=== PATIENT | male | born 1980 | race Caucasian/White ===

== ENCOUNTER 2024-12-28 16:46 | Inpatient (IN) | payer OTHER, SELFPAY ==
--- OUTSIDE RECORDS SUMMARY | 2024-12-28 16:50 | XMS_ITS | Encounter Summary ---
Author Organization [facility] Address [address] [place] [address] Care Team Providers Care Early Childhood Education Worker Name Role Phone Pcp, No Primary Care Provider Unavailabl e Encounter Details Date Type Department Care Team (Late st Contact Info) Description 12/26/2024 Procedure Pass [facility] [address] [place] [address] Social History Tobacco Use Types Packs/Day Years Used Date Smoking Tobacco: Every Day Cigarettes 1 20 Smokeless Tobacco: Never Comments:No interest in quit ting. Alcohol Use Standard Drinks/Week Comments No 0 (1 standard drink = 0.6 oz pur e alcohol) social Sex and Gender Information Value Date Recorded Sex Assigned at Male 07/03/2024 3:38 AM EDT Legal Sex Male 6:54 PM EDT Gender Identity Male 07/03/2024 3:38 AM EDT Sexual Orientation Queer, pansexual, an d/or questioning 07/03/2024 3:40 AM EDT Occupation Industry Job Start Date Job End Date Not on file Not on file Not on file Not on file documented as of this encounter Plan of Treatment Not on file documented as of this encounter Visit Diagnoses Not on filedocumented in this encounter Care Teams Early Childhood Education Worker Relationship Specialty [place] [id number] PCP - General 12/25/24 documented as of this encounter
--- OUTSIDE RECORDS SUMMARY | 2024-12-28 16:50 | XMS_ITS | Encounter Summary ---
Author Organization [facility] Address [address] [place] [address] Care Team Providers Care Shower Doors And Panels Fabricator Name Role Phone Kye Tobias MD Unavailable [phone] Brayden Flanagan MD Primary Care Provider [phone] Pcp, No Primary Care Provider Unavailabl e Pcp, No Primary Care Provider Unavailabl e Reason for Referral * Diagnostic (Routine) - Closed Specialty Diagnoses / Procedures Referred By Contac t Referred To Contact Radiology Diagnoses Constipation Procedures X-ray abdomen AP Brayden Flanagan MD [address] [place] [phone] Phone: tel: fax: Referral ID Status Reason Start Date Expiration Date Visits Re quested Visits Authorized [id number] Closed 03/08/2018 03/08/2019 1 1 Encounter Details Date Type Department Care Team (Late st Contact Info) Description 03/08/2018 Ancillary Orders [facility] [address] [place] [address] Brayden Flanagan MD [address] [place] [address] Constipation Social History Tobacco Use Types Packs/Day Years [...] on file documented as of this encounter Results * X-ray abdomen AP (03/08/2018 12:35 PM EDT) Anatomical Region Laterality Modality Abdomen, Ortho Abdomen Digital R adiography 03/08/2018 3:39 PM EDT Impressions 03/08/2018 3:40 PM EDT FINDINGS/IMPRESSION: Moderate amount of stool throughout the colon. Nonobstructive, nonspecific bowel gas pattern. No evidence of free air or radiopaque foreign body. Narrative 03/08/2018 3:40 PM EDT HISTORY: /Constipation Procedure Note Leonard Sullivan MD - 03/08/2018 HISTORY: /Constipation FINDINGS/IMPRESSION: Moderate amount of stool throughout the colon. Nonobstructive, nonspecificbowel gas pattern. No evidence of free air or radiopaque foreign body. Brayden Flanagan MD IMG DIAGNOSTIC IMAGING ORDERABL ES Final Result documented in this encounter Visit Diagnoses Diagnosis Constipation Unspecified constipation Constipation Unspecified constipation documented in this encounter Care Teams Shower Doors And Panels Fabricator Relationship Specialty Start Date End Date Kye Tobias MD PCP - Family Medicine 06/26/15 12/24/24 Brayden Flanagan MD [address] [place] [phone] PCP - General Family Medicine 03/07/18 07/02/24 [place] [id number] PCP - General 07/03/24 11/26/24 [place] [id number] PCP - General 12/25/24 documented as of this encounter
--- OUTSIDE RECORDS SUMMARY | 2024-12-28 16:50 | XMS_ITS | Encounter Summary ---
Author Organization [facility] Address [address] [place] [address] Care Team Providers Care Key Carrier Name Role Phone Pcp, No Primary Care Provider Unavailabl e Encounter Details Date Type Department Care Team (Latest Contact Info) Description 12/26/2024 Travel Social History Tobacco Use Types Packs/Day Years [...] on filedocumented in this encounter Care Teams Key Carrier Relationship Specialty [place] [id number] PCP - General 12/25/24 documented as of this encounter
--- OUTSIDE RECORDS SUMMARY | 2024-12-28 16:50 | XMS_ITS | Encounter Summary ---
Author Organization [facility] Address [address] [place] [address] Care Team Providers Care Fund Manager Name Role Phone Kye Tobias MD Unavailable [phone] Nellie Nava MD Primary Care Provider Brayden Flanagan MD Primary Care Provider [phone] Pcp, No Primary Care Provider Unavailabl e Pcp, No Primary Care Provider Unavailabl e Reason for Visit * Reason Onset Date Comments Results 01/16/2018 Encounter Details Date Type Department Care Team (Late st Contact Info) Description 01/16/2018 Telephone [facility] [address] [place] [phone] Anali Aguilar NP [address] [place], [place] [phone] Results Social History Tobacco Use Types Packs/Day Years Used Date Smoking Tobacco: Every Day Cigarettes 1 20 Smokeless Tobacco: Never Alcohol Use Standard Drinks/Week Comments No 0 (1 standard drink = 0.6 oz pur e alcohol) social Sex and Gender Information Value Date Recorded Sex Assigned at Male 07/03/2024 3:38 AM EDT Legal Sex Male 6:54 PM EDT Gender Identity Male 07/03/2024 3:38 AM EDT Sexual Orientation Queer, pansexual, an d/or questioning 07/03/2024 3:40 AM EDT documented as of this encounter Miscellaneous Notes * Telephone Encounter - Anali Aguilar NP - 01/16/2018 12:05 PM EST Left message on machine. Labs are still pending and I will call patient back when I have the results. * Telephone Encounter - Nita Bazan - 01/16/2018 9:55 AM EST Patient is calling today requesting results for his lab work and also would like a call to discuss his medications lamoTRIgine (LaMICtal) 150 MG tablet gabapentin (NEURONTIN) 400 MG capsule Patient can be reached at [phone] documented in this encounter Plan of Treatment Not on file documented as of this encounter Visit Diagnoses Not on filedocumented in this encounter Care Teams Fund Manager Relationship Specialty Start Date End Date Kye Tobias MD PCP - Family Medicine 06/26/15 12/24/24 Nellie Nava MD [address] [place] [address] PCP - General Internal Medicine 01/16/18 03/06/18 Brayden Flanagan MD [address] [place] [phone] PCP - General Family Medicine 03/07/18 07/02/24 [place] [id number] PCP - General 07/03/24 11/26/24 [place] [id number] PCP - General 12/25/24 documented as of this encounter
--- OUTSIDE RECORDS SUMMARY | 2024-12-28 16:50 | XMS_ITS | Encounter Summary ---
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 1006, For 1 dose, Look-alike / Sound-alike Medication Given 12/26/2024 10:23 AM EST 75 mg documented in this encounter Active and Recently Administered Medications Times are shown in EST. Scheduled Medication Order 12/24/2024 12/25/2024 12/26/2024 haloperidol (HALDOL) tablet 5 mg 5 mg, Oral, Once, On Tue12/26/24 at 1006, For 1 dose 1023 (Not Given - Pr ovider: Zulay Gore RN - Reason: Patient/family refused) lamoTRIgine (LaMICtal) tablet 75 mg (COMPLETED) 75 mg, Oral, Once, On Tue12/26/24 at 1006, For 1 dose, Look-alike / Sound-alike Medication 1023 (Given - Provid er: Zulay Gore RN) documented in this encounter Care Teams Collision Worker Relationship Specialty Start [place] [id number] PCP - General 12/25/24 documented as of this encounter
--- OUTSIDE RECORDS SUMMARY | 2024-12-28 16:50 | XMS_ITS | Clinical Summary ---
Author Organization [facility] Address [address] Main Number: [phone] (13/06) [place] [address] Care Team Providers Care Veterinary X Ray Operator Name Role Phone Unavailable Primary Care Provider Unavailabl e Allergies No known active allergies Social History Tobacco Use Types Packs/Day Years Used Date Smoking Tobacco: Some Days Smokeless Tobacco: Never Housing Answer Date Recorded What is your living situatio n today? I do not have a steady place to live (I am temporarily staying with others, in a hotel, in a group home, living outside on the street, on a bench, in a car, abandoned building, bus or train station, or in a park) 12/19/2018 Sex and Gender Information Value Date Recorded Sex Assigned at Not on file Gender Identity Not on file Sexual Orientation Not on file Last Filed Vital Signs Vital Sign Reading Time Taken Comments Blood Pressure 124/84 12/19/2018 11:19 AM EST Pulse 92 12/19/2018 11:19 AM EST Temperature 37.1 ??C (98.8 ??F) 12/19/2018 11:[address] Respiratory Rate 18 12/19/2018 11:19 AM EST Oxygen Saturation 94% 12/19/2018 11:19 AM EST Inhaled Oxygen Concentration - - Weight 108.9 kg (240 lb) 12/19/2018 7:42 AM EST Height 188 cm (6' 2 ) 12/19/2018 7:42 AM EST Body Mass Index 30.81 12/19/2018 7:42 AM EST Plan of Treatment Not on file
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
--- OUTSIDE RECORDS SUMMARY | 2024-12-28 16:50 | XMS_ITS | Encounter Summary ---
Author Organization [facility] Address [address] [place] [address] Care Team Providers Care Jet Pilot Name Role Phone Kye Tobias MD Unavailable [phone] Reason for Referral * Diagnostic (Routine) - Authorized Specialty Diagnoses / Procedures Referred By Kristy garnett Referred To Contact Radiology Diagnoses Closed displaced fracture of acromial end of right clavicle, initial encounter Procedures X-ray clavicle right Flor Kang MD [address] [place] [address], [place] [address] Phone: tel: fax: Referral ID Status Reason Start Date Expiration Date V isits Requested Visits Authorized [id number] Authorized 11/27/2024 11/27/2026 1 1 Reason for Visit * Diagnostic (Routine) - Authorized Specialty Diagnoses / Procedures Referred By Kristy garnett Referred To Contact Radiology Diagnoses Closed displaced fracture of acromial end of right clavicle, initial encounter Procedures X-ray clavicle right Flor Kang MD [address] [place] [address], [address] [address] Phone: tel: fax: Referral ID Status Reason Start Date Expiration Date V isits Requested Visits Authorized [id number] Authorized 11/27/2024 11/27/2026 1 1 Encounter Details Date Type Department Care Team (Latest Contact Info) Description 11/27/2024 1:00 PM EST - 11/27/2024 8:04 PM EST Hospital Encounter [facility] [address] [place] [address] Closed displaced fracture of acromial end of right clavicle, initial encounter Discharge Disposition: Home or Self Care Social [...] on file documented as of this encounter Medications at Time of Discharge OLANZapine (ZyPREXA) 20 MG tablet Take 1 tablet (20 mg total) by mouth at bedtime buPROPion (WELLBUTRIN SR) 100 MG extended release 12 hr tablet (SR) Take 1 tablet (100 mg total) by mouth 2 (two) times a day 5 ondansetron (ZOFRAN-ODT) 4 MG disintegrating tablet Dissolve 1 tablet (4 mg total) in mouth every 8 (eight) hours as needed for nausea for up to 15 days 15 tablet 11/27/2024 5 documented as of this encounter Plan of Treatment Not on file documented as of this encounter Procedures Procedure Name Priority Date/Time Associated Diagnosis Comments XR CLAVICLE RIGHT Routine 11/27/2024 1:1 4 PM EST Closed displaced fracture of acromial end of right clavicle, initial encounter documented in this encounter Results * X-ray clavicle right (11/27/2024 1:14 PM EST) Anatomical Region Laterality Modality Shoulder, Ortho Shoulder Digital Radiography 12/03/2024 12:3 6 PM EST Impressions 12/03/2024 12:37 PM EST FINDINGS/IMPRESSION: There is normal mineralization. No interval change in alignment of a comminuted displaced distal right clavicular fracture with approximately 2.0 cm distraction of the fracture fragment. Postsurgical changes of the left clavicle are again noted. No additional fracture or osseous lesion is identified. There is mild widening of the acromioclavicular joint which measures 7 mm. The soft tissues are normal. RS: [id number] Narrative 12/03/2024 12:37 PM EST HISTORY: Fracture, clavicle/Closed displaced fracture of acromial end of right clavicle, initial encounter TECHNIQUE: XR CLAVICLE RIGHT COMPARISON: Radiographs 11/27/2024 Procedure Note Shamika Smith MD - 12/03/2024 HISTORY: Fracture, clavicle/Closed displaced fracture of acromial end ofright clavicle, initial encounter TECHNIQUE: XR CLAVICLE RIGHT COMPARISON: Radiographs 11/27/2024 FINDINGS/IMPRESSION: There is normal mineralization. No interval change in alignment of acomminuted displaced distal right clavicular fracture with approximately2.0 cm distraction of the fracture fragment. Postsurgical changes of theleft clavicle are again noted. No additional fracture or osseous lesion is identified. There is mildwidening of the acromioclavicular joint which measures 7 mm. The softtissues are normal. RS: [id number] Flor Kang MD IMG DIAGNOSTIC IMAGING ORDER JACOBO Final Result documented in this encounter Visit Diagnoses Diagnosis Closed displaced fracture of acromial end of right clavicle, initial encounter documented in this encounter Care Teams Jet Pilot Relationship Specialty Start Date End Date Kye Tobias MD PCP - Family Medicine 06/26/15 12/24/24 documented as of this encounter
--- OUTSIDE RECORDS SUMMARY | 2024-12-28 16:50 | XMS_ITS | Clinical Summary ---
Author Organization [facility] Address [address] [place] [address] Care Team Providers Care Drop Board Worker Name Role Phone Unavailable Primary Care Provider Unavailabl e Social History Tobacco Use Types Packs/Day Years Used Date Smoking Tobacco: Never Assessed Sex and Gender Information Value Date Recorded Sex Assigned at Not on file Legal Sex Male 6:42 PM EST Gender Identity Not on file Sexual Orientation Not on file Plan of Treatment Not on file
--- OUTSIDE RECORDS SUMMARY | 2024-12-28 16:50 | XMS_ITS | Encounter Summary ---
Author Organization [facility] Address [address] [place] [address] Care Team Providers Care Can Pusher Name Role Phone Kye Tobias MD Unavailable [phone] Kye Tobias MD Primary Care Provider [phone] Nellie Nava MD Primary Care Provider [phone] Brayden Flanagan MD Primary Care Provider [phone] Pcp, No Primary Care Provider Unavailabl e Pcp, No Primary Care Provider Unavailabl e Reason for Visit * Reason Onset Date Comments sick call 09/27/2017 patient states h e has been having seizures yesterday he had a bad one now he feels dizzy he cannot come in today wants to see NA pablo 145pm appt asked patient if he was sure he could not come today and could wait till tomorrow Encounter Details Date Type Department Care Team (Late st Contact Info) Description 09/27/2017 Telephone [facility] [address] [place] [address] Kye Tobias MD [address] [place], [place] [phone] sick call (patient states he has been having seizures yesterday he had a bad one now he feels dizzy he cannot come in today wants to see NA pablo 145pm appt asked patient if he was sure he could not come today and could wait till tomorrow ) Social History Tobacco Use Types Packs/Day Years Used Date Smoking Tobacco: Every Day Cigarettes 1 20 Smokeless Tobacco: Never Alcohol Use Standard Drinks/Week Comments Yes 0 (1 standard drink = 0.6 oz pur e alcohol) social Sex and Gender Information Value Date Recorded Sex Assigned at Male 07/03/2024 3:38 AM EDT Legal Sex Male 6:54 PM EDT Gender Identity Male 07/03/2024 3:38 AM EDT Sexual Orientation Queer, pansexual, an d/or questioning 07/03/2024 3:40 AM EDT documented as of this encounter Miscellaneous Notes * Telephone Encounter - Naty Manzano RN - 09/27/2017 11:36 AM EST Spoke w/ pt - he had another seizure yesterday, he started to twitch , then fell and seized , felt shaky, salight urinary dribbling, no bowel incont, + headache, sleepy. Will keep OV in am w/ Dr Tobias. Saw neuro 09/05- has not had head MRI, has not been scheduled yet, pt will call Neuro for this 48 hr eeg due 10/18/17 documented in this encounter Plan of Treatment Not on file documented as of this encounter Visit Diagnoses Not on filedocumented in this encounter Care Teams Can Pusher Relationship Specialty Start Date End Date Kye Tobias MD PCP - Family Medicine 06/26/15 12/24/24 Kye Tobias MD PCP - General Internal Medicine 08/24/16 01/15/18 Nellie Nava MD [address] [place] [address] PCP - General Internal Medicine 01/16/18 03/06/18 Brayden Flanagan MD [address] [place] [phone] PCP - General Family Medicine 03/07/18 07/02/24 [place] [id number] PCP - General 07/03/24 11/26/24 [place] [id number] PCP - General 12/25/24 documented as of this encounter
--- OUTSIDE RECORDS SUMMARY | 2024-12-28 16:50 | XMS_ITS | Encounter Summary ---
Author Organization [facility] Address [address] [place] [address] Care Team Providers Care Transit Manager Name Role Phone Kye Tobias MD Unavailable [phone] Kye Tobias MD Primary Care Provider Nellie Nava MD Primary Care Provider [phone] Brayden Flanagan MD Primary Care Provider [phone] Pcp, No Primary Care Provider Unavailabl e Pcp, No Primary Care Provider Unavailabl e Reason for Visit * Reason Comments Medication Refill Encounter Details Date Type Department Care Team (Late st Contact Info) Description 03/05/2017 Refill [facility] [address] [place] [address] Kye Tobias MD [address] [place], [place] [phone] Social History Tobacco Use Types Packs/Day Years [...] AM EDT documented as of this encounter Plan of Treatment Not on file documented as of this encounter Visit Diagnoses Not on filedocumented in this encounter Care Teams Transit Manager Relationship Specialty Start Date End Date Kye Tobias MD PCP - Family Medicine 06/26/15 12/24/24 Kye Tobias MD PCP - General Internal Medicine 08/24/16 01/15/18 Nellie Nava MD [address] [place] [address] PCP - General Internal Medicine 01/16/18 03/06/18 Brayden Flanagan MD [address] [place] [phone] PCP - General Family Medicine 03/07/18 07/02/24 [place] [id number] PCP - General 07/03/24 11/26/24 [place] [id number] PCP - General 12/25/24 documented as of this encounter
--- OUTSIDE RECORDS SUMMARY | 2024-12-28 16:50 | XMS_ITS | Encounter Summary ---
Author Organization [facility] Address [address] [place] [address] Care Team Providers Care Roustabout Pusher Name Role Phone Kye Tobias MD Unavailable [phone] Kye Tobias MD Primary Care Provider Nellie Nava MD Primary Care Provider [phone] Brayden Flanagan MD Primary Care Provider [phone] Pcp, No Primary Care Provider Unavailabl e Pcp, No Primary Care Provider Unavailabl e Reason for Visit * Reason Onset Date Comments Sick Call 07/12/2017 Pt thinks he's b een having seizures on & off since he was a teenager. Girlfriend has witnessed a chronic jerk or drops something then falls to the floor, has happened about 10 times in past 6 months. Also has difficulty urinating, difficulty starting to urinate then feels pressure when he does urinate for about [address] apt w/ MICHELLE Montejo today @ 4:15pm Encounter Details Date Type Department Care Team (Late st Contact Info) Description 07/12/2017 Telephone [facility] [address] [place] [address] Kye Tobias MD [address] [place] [address] Sick Call (Pt thinks he's been having seizures on & off since he was a teenager. Girlfriend has witnessed a chronic jerk or drops something then falls to the floor, has happened about 10 times in past 6 months. Also has difficulty urinating, difficulty starting to urinate then feels pressure when he does urinate for about 2 weeks[address] apt w/ MICHELLE Montejo today @ 4:15pm) Social History Tobacco Use Types Packs/Day Years [...] encounter Miscellaneous Notes * Telephone Encounter - Awilda Montes NP - 07/12/2017 4:30 PM EDT Okay documented in this encounter Plan of Treatment Not on file documented as of this encounter Visit Diagnoses Not on filedocumented in this encounter Care Teams Roustabout Pusher Relationship Specialty Start Date End Date Kye Tobias MD PCP - Family Medicine 06/26/15 12/24/24 Kye Tobias MD PCP - General Internal Medicine 08/24/16 01/15/18 Nellie Nava MD [address] [place] [address] PCP - General Internal Medicine 01/16/18 03/06/18 Brayden Flanagan MD [address] [place] [id number] PCP - General Family Medicine 03/07/18 07/02/24 [place] [id number] PCP - General 07/03/24 11/26/24 [place] [id number] PCP - General 12/25/24 documented as of this encounter
--- OUTSIDE RECORDS SUMMARY | 2024-12-28 16:50 | XMS_ITS | Encounter Summary ---
Author Organization [facility] Address [address] [place] [address] Care Team Providers Care Hand Singer Name Role Phone Kye Tobias MD Unavailable [phone] Kye Tobias MD Primary Care Provider Nellie Nava MD Primary Care Provider [phone] Brayden Flanagan MD Primary Care Provider [phone] Pcp, No Primary Care Provider Unavailabl e Pcp, No Primary Care Provider Unavailabl e Reason for Visit * Reason Onset Date Comments TCM 09/16/2016 Patient being D/ C tomorrow 09/17/16. Hosp h/u appt booked for 09/24/16 Encounter Details Date Type Department Care Team (Late st Contact Info) Description 09/16/2016 Telephone [facility] [address] [place] [address] Kye Tobias MD [address] [place], [place] [id number] TCM (Patient being D/C tomorrow 09/17/16. Hosp h/u appt booked for 09/24/16) Social History Tobacco Use Types Packs/Day Years [...] encounter Miscellaneous Notes * Telephone Encounter - Rimma Pina RN - 09/17/2016 10:48 AM EDT Tel with pt, home and doing well, no refills needed, pt needs PT-1 form done for ov here 09/24 and for Physical therapy visits, new encounter created for same documented in this encounter Plan of Treatment Not on file documented as of this encounter Visit Diagnoses Not on filedocumented in this encounter Care Teams Hand Singer Relationship Specialty Start Date End Date Kye Tobias MD PCP - Family Medicine 06/26/15 12/24/24 Kye Tobias MD PCP - General Internal Medicine 08/24/16 01/15/18 Nellie Nava MD [address] [place] [id number] PCP - General Internal Medicine 01/16/18 03/06/18 Brayden Flanagan MD [address] [place] [phone] PCP - General Family Medicine 03/07/18 07/02/24 [place] [id number] PCP - General 07/03/24 11/26/24 [place] [id number] PCP - General 12/25/24 documented as of this encounter
--- OUTSIDE RECORDS SUMMARY | 2024-12-28 16:50 | XMS_ITS | Encounter Summary ---
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 Barone contacted with report of (+) SI VSS, resp and cardiac assessment WNL (+) Tremors, (+) Restlessness, (+) responding to internal stimuli, (+) Agitation Previous notes report, Ortho has been trying to reach Pt for H&P and to schedule surgery, unable to reach Pt Stretcher in hallway, monitored, bed at lowest level * Brigitte Hogan RN - 11/28/2024 4:52 AM EST PT ARRIVES TO ED REPORTING PAIN TO SOLES OF FEET. PT ALSO REPORTING PAIN/REDNESS/SWELLING TO BILAT GREAT TOES +CSM. PT REPORTS WALKING A LOT . documented in this encounter Plan of Treatment Not on file documented as of this encounter Procedures Procedure Name Priority Date/Time Associated Diagnosis Comments TOXICOLOGY SCREEN, URINE (NON FCU) STAT 11/28/2024 3:42 PM EST TOXICOLOGY SCREEN, URINE STAT 11/28/2024 3:42 PM EST CBC AND AUTO DIFFERENTIAL STAT 11/28/2024 8:36 AM EST LIPASE STAT 11/28/2024 8:36 AM EST ETHANOL STAT 11/28/2024 8:36 AM EST ACETAMINOPHEN LEVEL STAT 11/28/2024 8 :36 AM EST SALICYLATE LEVEL STAT 11/28/2024 8:36 AM EST COMPREHENSIVE METABOLIC PANEL STAT 11/28/2024 8:36 AM EST documented in this encounter Results * (ABNORMAL) Toxicology screen, urine (11/28/2024 3:42 PM EST) Amphetamine Qualitative, Ur Detected(A) None Detected 11/28/2024 4:37 PM EST [facility] Barbiturates Qualitative, Ur None Detected None Detected 11/28/2024 4:37 PM [facility] Benzodiazepines Qualitative, Ur Detected(A) None Detected 11/28/2024 4:37 PM EST [facility] Methadone Qualitative, Ur None Detected None Detected 11/28/2024 4:37 PM [facility] Opiates Qualitative, Ur None Detected None Detected 11/28/2024 4:37 PM [facility] Cannabinoids Qualitative, Ur Detected(A) None Detected 11/28/2024 4:37 PM [facility] Cocaine Qualitative, Ur Detected(A) None Detected 11/28/2024 4:37 PM [facility] Oxycodone Qualitative Urine None Detected None Detected 11/28/2024 4:37 PM [facility] Buprenorphine Qualitative Urine Detected(A) None Detected 11/28/2024 4:37 PM [facility] Fentanyl Qualitative, Ur Detected(A) None Detected 11/28/2024 4:37 PM [facility] Creatinine, Urine 220.0 20.0 - 400.0 mg/dL 11/28/2024 4:37 PM [facility] Urine Collection / Unknown 11/28/2024 3:42 PM EST 11/28/2024 4:01 PM EST [facility] - 11/28/2024 4:37 PM EST This urine immunoassay drug method is for medical ??SCREENING only and should not be used for non-medical ??(employment,legal) purposes. ??The test result(s) may be ??affected by dietary and over the counter medications. ??Negative cut-offs for these tests are set to detect DRUG ??ABUSE. ??Therapeutic levels of these drugs may not be ??detected. ?(The negative cut-offs for the drug classes are: ??Cocaine, Methadone, Opiates 300 ng/ml; ??Barbituates, Benzodiazepines 200 ng/ml; Amphetamines 1000 ng/ml; ??Cannabinoids 50 ng/ml; Buprenorphine 5 ng/ml; Oxycodone 100 ng/ml; ??Fentanyl 1 ng/ml). ??As this is a screening methodology, any positive results are ??UNCONFIRMED. ??Confirmation of positive results may be ??requested from the laboratory within 5 days. ??All test ??results should be interpreted in context of the patient's ??clinical condition. us Kenya Barone MD URINE ORDERABLES Final Res ult Performing Organization Address [facility] de Phone Number [facility] [address] [place] [phone] * Ethanol (11/28/2024 8:36 AM EST) Ethanol Lvl <3 <10 mg/dL 11/28/2024 9:39 AM EST [facility] Blood Structure of part of left upper limb / Unknown Venipuncture / Unknown 11/28/2024 8:36 AM EST 11/28/2024 8:41 AM EST us Kenya Barone MD LAB BLOOD ORDERABLES Final Result Performing Organization Address [facility] Phone Number [facility] [address] [place] [phone] * Salicylate level (11/28/2024 8:36 AM EST) Salicylate <3.0 <30.0 mg/dL 11/28/2024 9:39 AM EST [facility] Blood Structure of part of left upper limb / Unknown Venipuncture / Unknown 11/28/2024 8:36 AM EST 11/28/2024 8:41 AM EST us Kenya Barnoe MD LAB BLOOD ORDERABLES Final Result Performing Organization Address [facility] de Phone Number [facility] [address] [place] [phone] * (ABNORMAL) Acetaminophen level (11/28/2024 8:36 AM EST) Acetaminophen Level <2(L) 10 - 20 ug/mL 11/28/2024 9:39 AM EST [facility] Blood Structure of part of left upper limb / Unknown Venipuncture / Unknown 11/28/2024 8:36 AM EST 11/28/2024 8:41 AM EST us Kenya Barone MD LAB BLOOD ORDERABLES Final Result Performing Organization Address City/[facility]/ZIP Co de Phone Number [facility] [address] [place] [address] * Lipase (11/28/2024 8:36 AM EST) Lipase 43 12 - 53 U/L 11/28/2024 9:38 AM EST [facility] Blood Structure of part of left upper limb / Unknown Venipuncture / Unknown 11/28/2024 8:36 AM EST 11/28/2024 8:41 AM EST us Kenya Barone MD LAB BLOOD ORDERABLES Final Result Performing Organization Address [facility] Co de Phone Number [facility] [address] [place] [phone] * (ABNORMAL) Comprehensive metabolic panel (11/28/2024 8:36 AM EST) Sodium 140 136 - 145 mEq/L 11/28/2024 9:38 AM EST [facility] Potassium 4.0 3.5 - 5.1 mEq/L 11/28/2024 9:38 AM EST [facility] Chloride 104 98 - 109 mEq/L 11/28/2024 9:38 AM EST [facility] CO2 28 20 - 31 mEq/L 11/28/2024 9:38 AM EST [facility] Anion Gap 8 4 - 15 mEq/L 11/28/2024 9:38 AM EST [facility] Glucose 101(H) 70 - 100 mg/dL 11/28/2024 9:38 AM EST [facility] Creatinine 0.92 0.60 - 1.10 mg/dL 11/28/2024 9:38 AM EST [facility] eGFR (Male) >60 60 - 115 mL/min 11/28/2024 9:38 AM EST [facility] BUN 17 9 - 23 mg/dL 11/28/2024 9:38 AM EST [facility] Calcium 9.0 8.3 - 10.6 mg/dL 11/28/2024 9:38 AM EST [facility] Total Protein 6.2 5.7 - 8.2 g/dL 11/28/2024 9:38 AM EST [facility] Albumin 4.0 3.2 - 4.8 g/dL 11/28/2024 9:38 AM EST [facility] A/G Ratio 1.8 1.0 - 2.3 11/28/2024 9:38 AM EST [facility] Total Bilirubin 0.3 0.2 - 1.0 mg/dL 11/28/2024 9:38 AM EST [facility] AST 32 13 - 40 U/L 11/28/2024 9:38 AM [facility] Alkaline Phosphatase 58 46 - 116 IU/L 11/28/2024 9:38 AM [facility] ALT 22 7 - 40 U/L 11/28/2024 9:38 AM [facility] Blood Structure of part of left upper limb / Unknown Venipuncture / Unknown 11/28/2024 8:36 AM EST 11/28/2024 8:41 AM EST [facility] - 11/28/2024 9:38 AM EST The calcium reference range has been changed as of 10/16/2024. us Kenya Barone MD LAB BLOOD ORDERABLES Final Result Performing Organization Address City/State/[facility] Co de Phone Number [facility] [address] [place] [phone] * (ABNORMAL) CBC and Auto Differential (11/28/2024 8:36 AM EST) WBC 8.5 4.8 - 11.2 10*3/??L 11/28/2024 8:51 AM EST [facility] RBC 3.62(L) 4.00 - 5.90 10*6/??L 11/28/2024 8:51 AM EST [facility] HGB 11.4(L) 14.0 - 17.2 g/dL 11/28/2024 8:51 AM [facility] HCT 33.3(L) 40.0 - 52.0 % 11/28/2024 8:51 AM [facility] MCV 92.1 82.0 - 98.0 fL 11/28/2024 8:51 AM [facility] MCH 31.4 27.0 - 35.0 pg 11/28/2024 8:51 AM [facility] MCHC 34.1 32.0 - 37.0 g/dL 11/28/2024 8:51 AM [facility] RDW 13.3 12.0 - 15.0 % 11/28/2024 8:51 AM [facility] PLT 287 150 - 400 10*3/??L 11/28/2024 8:51 AM [facility] MPV 7.7 7.0 - 14.0 fL 11/28/2024 8:51 AM [facility] Neut % 71.3 45.0 - 85.0 % 11/28/2024 8:51 AM [facility] Lymph % 14.4(L) 15.0 - 45.0 % 11/28/2024 8:51 AM [facility] [place] % 10.8 0.0 - 12.0 % 11/28/2024 8:51 AM [facility] Eos % 3.0 0.0 - 7.0 % 11/28/2024 8:51 AM [facility] Baso % 0.5 0.0 - 3.0 % 11/28/2024 8:51 AM [facility] NRBC% 0 0 /100 WBC /100 WBC 11/28/2024 8:51 AM [facility] Neut # 6.1 2.2 - 9.5 10*3/??L 11/28/2024 8:51 AM [facility] Lym # 1.2 0.7 - 5.0 10*3/??L 11/28/2024 8:51 AM [facility] [place] # 0.9 0.0 - 1.3 10*3/??L 11/28/2024 8:51 AM EST [facility] Eos # 0.3 0.0 - 0.4 10*3/??L 11/28/2024 8:51 AM EST [facility] Baso # 0.0 0.0 - 0.3 10*3/??L 11/28/2024 8:51 AM EST [facility] Blood Structure of part of left upper limb / Unknown Venipuncture / Unknown 11/28/2024 8:36 AM EST 11/28/2024 8:41 AM EST us Kenya Barone MD LAB BLOOD ORDERABLES Final Result [facility] [address] [place] [address] documented in this encounter Visit Diagnoses Diagnosis Mona (HCC)- Primary Bipolar I disorder, single manic episode, unspecified Mona (HCC) Bipolar I disorder, single manic episode, unspecified Polysubstance abuse (HCC) Other, mixed, or unspecified nondependent drug abuse, unspecified Clavicle fracture Unspecified part of closed fracture of clavicle documented in this encounter Admitting Diagnoses Diagnosis Mona (HCC) Bipolar I disorder, single manic episode, unspecified documented in this encounter Administered Medications Inactive Administered Medications - up to 3 most recent administrations Medication Order MAR Action Action Date Dose Rate Site acetaminophen (TYLENOL) tablet 650 mg 650 mg, Oral, Every 6 hours PRN, moderate pain (4-6), Starting on Tue11/28/24 at 0657, Adult MAX: NOT to exceed 4 grams of ACETAMINOPHEN per 24 hrs from ALL sources. amoxicillin (AMOXIL) capsule 500 mg 500 mg, Oral, Every 12 hours scheduled, Indications: Odontogenic Infection, First dose on Tue11/29/24 at 0900, For 5 daysIndications:Odontogenic Infection Given 11/29/2024 8:16 AM EST 500 mg docusate sodium (COLACE) capsule 100 mg 100 mg, Oral, 2 times daily, First dose on Tue11/28/24 at 1247 Given 11/29/2024 8:15 AM EST 100 mg Given 11/28/2024 8:37 PM EST 100 mg DULoxetine (CYMBALTA) delayed release capsule 30 mg 30 mg, Oral, 2 times daily, First dose on Tue11/28/24 at 1247, May mix contents of capsule with apple juice/sauce prior to administration. Do not crush capsule. Given 11/29/2024 8:15 AM EST 30 mg Given 11/28/2024 8:37 PM EST 30 mg Given 11/28/2024 5:09 PM EST 30 mg haloperidol (HALDOL) tablet 5 mg 5 mg, Oral, 2 times daily, First dose on Tue11/28/24 at 1247 Given 11/29/2024 8:15 AM EST 5 mg Given 11/28/2024 5:09 PM EST 5 mg ibuprofen (ADVIL,MOTRIN) tablet 600 mg 600 mg, Oral, Every 6 hours PRN, moderate pain (4-6), Starting on Tue11/28/24 at 0657 lamoTRIgine (LaMICtal) tablet 100 mg 100 mg, Oral, Daily, First dose on Tue11/28/24 at 1247, Look-alike / Sound-alike Medication Given 11/29/2024 8:15 AM EST 100 mg Given 11/28/2024 5:09 PM EST 100 mg mirtazapine (REMERON) tablet 7.5 mg 7.5 mg, Oral, At bedtime, First dose on Tue11/28/24 at 2100 Given 11/28/2024 8:38 PM EST 7.5 mg OLANZapine (ZyPREXA) tablet 20 mg 20 mg, Oral, At bedtime, First dose on Tue11/28/24 at 2100 Given 11/28/2024 8:38 PM EST 20 mg ondansetron (ZOFRAN-ODT) disintegrating tablet 4 mg 4 mg, Oral, Every 8 hours PRN, nausea, Starting on Tue11/28/24 at 1246 Given 11/28/2024 5:12 PM EST 4 mg traZODone tablet 100 mg 100 mg, Oral, At bedtime, First dose on Tue11/28/24 at 2100 Given 11/28/2024 8:38 PM EST 100 mg documented in this encounter Active and Recently Administered Medications Times are shown in EST. Scheduled Medication Order 11/27/2024 11/28/2024 11/29/2024 amoxicillin (AMOXIL) capsule 500 mg 500 mg, Oral, Every 12 hours scheduled, Indications: Odontogenic Infection, First dose on [place] 11/29/24 at 0900, For 5 days 0816 (Given - Provid er: Gretchen Braun RN) docusate sodium (COLACE) capsule 100 mg 100 mg, Oral, 2 times daily, First dose on Tue11/28/24 at 1247 1429 (Not Given - Provider: Gretchen Braun RN - Reason: Patient/family refused)2036 (Given - Provider: Jose Arora RN) 0815 (Given - Provider: Gretchen Braun RN) DULoxetine (CYMBALTA) delayed release capsule 30 mg 30 mg, Oral, 2 times daily, First dose on Tue11/28/24 at 1247, May mix contents of capsule with apple juice/sauce prior to administration. Do not crush capsule. 170 (Given - Provider: Raquel Arenas RN)2036 (Given - Provider: Jose Arora RN) 0815 (Given - Provider: Gretchen Braun RN) haloperidol (HALDOL) tablet 5 mg 5 mg, Oral, 2 times daily, First dose on Tue11/28/24 at 1247 1709 (Given - Provider: Raquel Arenas RN)2038 (Not Given - Provider: Jose Arora RN - Reason: Already Given) 0815 (Given - Provider: Gretchen Braun RN) lamoTRIgine (LaMICtal) tablet 100 mg 100 mg, Oral, Daily, First dose on Tue11/28/24 at 1247, Look-alike / Sound-alike Medication 170 (Given - Provider: Raquel Arenas RN) 0815 (Given - Provider: Gretchen Braun RN) mirtazapine (REMERON) tablet 7.5 mg 7.5 mg, Oral, At bedtime, First dose on Tue11/28/24 at 2100 2037 (Given - Provider: Jose Arora RN) naproxen (NAPROSYN) tablet 500 mg 500 mg, Oral, 2 times daily with meals, First dose on Tue11/28/24 at 1700 1710 (Not Given - Provider: Raquel Arenas RN - Reason: Patient/family refused) 0816 (Not Given - Provider: Gretchen Braun RN - Reason: Patient/family refused) OLANZapine (ZyPREXA) tablet 20 mg 20 mg, Oral, At bedtime, First dose on Tue11/28/24 at 2100 2037 (Given - Provider: Jose Arora RN) traZODone tablet 100 mg 100 mg, Oral, At bedtime, First dose on Tue11/28/24 at 2100 2037 (Given - Provider: Jose Arora RN) PRN Medication Order 11/27/2024 11/28/2024 11/29/2024 acetaminophen (TYLENOL) tablet 650 mg 650 mg, Oral, Every 6 hours PRN, moderate pain (4-6), Starting on Tue11/28/24 at 0657, Adult MAX: NOT to exceed 4 grams of ACETAMINOPHEN per 24 hrs from ALL sources. cyclobenzaprine (FLEXERIL) tablet 10 mg 10 mg, Oral, 2 times daily PRN, muscle spasms, back spasms, Starting on Tue11/28/24 at 1246 ibuprofen (ADVIL,MOTRIN) tablet 600 mg 600 mg, Oral, Every 6 hours PRN, moderate pain (4-6), Starting on Tue11/28/24 at 0657 1453 (Not Given - Provider: Gretchen Braun RN - Reason: Patient/family refused) ondansetron (ZOFRAN-ODT) disintegrating tablet 4 mg 4 mg, Oral, Every 8 hours PRN, nausea, Starting on Tue11/28/24 at 1246 1712 (Given - Provider: Neyda Arenas RN) documented in this encounter Care Teams Publishing Systems Analyst Relationship Specialty Start Date End Date Kye Tobias MD PCP - Family Medicine 06/26/15 12/24/24 documented as of this encounter
--- OUTSIDE RECORDS SUMMARY | 2024-12-28 16:50 | XMS_ITS | Encounter Summary ---
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 similar to previous ECG Jt Rosado MD 12/28/24 1006 documented in this encounter Plan of Treatment Not on file documented as of this encounter Procedures Procedure Name Priority Date/Time Associated Diagnosis Comments ECG 12-LEAD STAT 12/28/2024 10:06 AM EST TOXICOLOGY SCREEN, URINE (NON FCU) STAT 12/27/2024 12:43 AM EST TOXICOLOGY SCREEN, URINE STAT 12/27/2024 12:43 AM EST GREEN PST TOP STAT 12/27/2024 12:02 AM EST EXTRA TUBES STAT 12/27/2024 12:02 AM EST LAVENDER TOP STAT 12/27/2024 12:02 AM EST RED TOP STAT 12/27/2024 12:02 AM EST LIGHT BLUE TOP STAT 12/27/2024 12:02 AM EST CBC AND AUTO DIFFERENTIAL STAT 12/27/2024 12:02 AM EST ETHANOL STAT 12/27/2024 12:02 AM EST ACETAMINOPHEN LEVEL STAT 12/27/2024 1 2:02 AM EST SALICYLATE LEVEL STAT 12/27/2024 12:0 2 AM EST COMPREHENSIVE METABOLIC PANEL STAT 12/27/2024 12:02 AM EST documented in this encounter Results * (ABNORMAL) ECG 12-LEAD (12/28/2024 10:06 AM EST) Jt Mays MD - 12/28/2024 10:06 AM EST Jt Rosado MD ? 12/28/2024 10:06 AM EKG electrocardiogram Date/Time: 12/28/2024 10:06 AM Performed by: Jt Rosado MD Authorized by: Jt Rosado MD ??Measurements: ??BPM: 93 Findings: Rate: normal Rhythm: ??Sinus rhythm QRS axis: normal Conduction: incomplete RBBB ST Segments: normal T Waves: non-specific changes Clinical impression:abnormal EKG Interpreted by ED physician Comparison to Previous ECG: ??Comparison from 08/28/2024 ??similar to previous ECG us Jt Rosado MD ECG ORDERABLES Final Result * (ABNORMAL) Toxicology screen, urine (12/27/2024 12:43 AM EST) Amphetamine Qualitative, Ur None Detected None Detected 12/27/2024 1:20 AM EST [facility] Barbiturates Qualitative, Ur None Detected None Detected 12/27/2024 1:20 AM EST [facility] Benzodiazepines Qualitative, Ur None Detected None Detected 12/27/2024 1:20 AM EST [facility] Methadone Qualitative, Ur None Detected None Detected 12/27/2024 1:20 AM EST [facility] Opiates Qualitative, Ur None Detected None Detected 12/27/2024 1:20 AM EST [facility] Cannabinoids Qualitative, Ur Detected(A) None Detected 12/27/2024 1:20 AM EST [facility] Cocaine Qualitative, Ur Detected(A) None Detected 12/27/2024 1:20 AM EST [facility] Oxycodone Qualitative Urine None Detected None Detected 12/27/2024 1:20 AM EST [facility] Buprenorphine Qualitative Urine Detected(A) None Detected 12/27/2024 1:20 AM EST [facility] Fentanyl Qualitative, Ur None Detected None Detected 12/27/2024 1:20 AM EST [facility] Creatinine, Urine 66.0 20.0 - 400.0 mg/dL 12/27/2024 1:20 AM EST [facility] Urine Urine specimen obtained by clean catch procedure / Unknown Collection / Unknown 12/27/2024 12:43 AM EST 12/27/2024 12:57 AM EST Narrative [facility] - 12/27/2024 1:20 AM EST This urine immunoassay drug method is [...] in context of the patient's ??clinical condition. Anali Joyce MD URINE ORDERABLES Final Result [facility] [address] [place] [address] * Light Blue Top (12/27/2024 12:02 AM EST) Extra Tube Auto resulted. 12/27/2024 4:06 AM EST [facility] Comment:Hold for add-ons. Blood Venipuncture / Unknown 12/27/2024 12:02 AM EST 12/27/2024 12:02 AM EST Anali Joyce MD LAB BLOOD ORDERABLES Final Res ult Performing Organization Address [facility] Co de Phone Number [facility] [address] [place] [phone] * Lavender Top (12/27/2024 12:02 AM EST) Extra Tube Auto resulted. 12/27/2024 4:06 AM EST [facility] Comment:Hold for add-ons. Blood Venipuncture / Unknown 12/27/2024 12:02 AM EST 12/27/2024 12:02 AM EST Anali Joyce MD LAB BLOOD ORDERABLES Final Res ult Performing Organization Address [facility] de Phone Number [facility] [address] [place] [phone] * Red Top (12/27/2024 12:02 AM EST) Extra Tube Auto resulted. 12/27/2024 4:06 AM EST [facility] Comment:Hold for add-ons. Blood Venipuncture / Unknown 12/27/2024 12:02 AM EST 12/27/2024 12:02 AM EST Anali Joyce MD LAB BLOOD ORDERABLES Final Res ult Performing Organization Address [facility] de Phone Number [facility] [address] [place] [phone] * Green PST Top (12/27/2024 12:02 AM EST) Extra Tube Auto resulted. 12/27/2024 4:06 AM EST [facility] Comment:Hold for add-ons. Blood Venipuncture / Unknown 12/27/2024 12:02 AM EST 12/27/2024 12:02 AM EST Anali Joyce MD LAB BLOOD ORDERABLES Final Res ult Performing Organization Address City/[facility] Co de Phone Number [facility] [address] [place] [phone] * Comprehensive metabolic panel (12/27/2024 12:02 AM [facility]) Sodium 142 136 - 145 mEq/L 12/27/2024 12:31 AM [facility] Potassium 3.6 3.5 - 5.1 mEq/L 12/27/2024 12:31 AM [facility] Chloride 106 98 - 109 mEq/L 12/27/2024 12:31 AM [facility] CO2 31 20 - 31 mEq/L 12/27/2024 12:31 AM [facility] Anion Gap 5 4 - 15 mEq/L 12/27/2024 12:31 AM [facility] Glucose 88 70 - 100 mg/dL 12/27/2024 12:31 AM [facility] Creatinine 0.99 0.60 - 1.10 mg/dL 12/27/2024 12:31 AM [facility] eGFR (Male) >60 60 - 115 mL/min 12/27/2024 12:31 AM [facility] BUN 14 9 - 23 mg/dL 12/27/2024 12:31 AM [facility] Calcium 9.3 8.3 - 10.6 mg/dL 12/27/2024 12:31 AM [facility] Total Protein 7.2 5.7 - 8.2 g/dL 12/27/2024 12:31 AM [facility] Albumin 4.6 3.2 - 4.8 g/dL 12/27/2024 12:31 AM [facility] A/G Ratio 1.8 1.0 - 2.3 12/27/2024 12:31 AM [facility] Total Bilirubin 0.3 0.2 - 1.0 mg/dL 12/27/2024 12:31 AM [facility] AST 13 13 - 40 U/L 12/27/2024 12:31 AM [facility] Alkaline Phosphatase 67 46 - 116 IU/L 12/27/2024 12:31 AM [facility] ALT 15 7 - 40 U/L 12/27/2024 12:31 AM [facility] Blood Venipuncture / Unknown 12/27/2024 12:02 AM EST 12/27/2024 12:02 AM EST [facility] - 12/27/2024 12:31 AM EST The calcium reference range has been changed as of 10/16/2024. us Anali Joyce MD LAB BLOOD ORDERABLES Final Res ult [facility] [address] [place] [address] * (ABNORMAL) CBC and Auto Differential (12/27/2024 12:02 AM EST) WBC 9.6 4.8 - 11.2 10*3/??L 12/27/2024 12:19 AM [facility] RBC 3.88(L) 4.00 - 5.90 10*6/??L 12/27/2024 12:19 AM [facility] HGB 12.2(L) 14.0 - 17.2 g/dL 12/27/2024 12:19 AM [facility] HCT 35.3(L) 40.0 - 52.0 % 12/27/2024 12:19 AM [facility] MCV 91.1 82.0 - 98.0 fL 12/27/2024 12:19 AM [facility] MCH 31.4 27.0 - 35.0 pg 12/27/2024 12:19 AM [facility] MCHC 34.5 32.0 - 37.0 g/dL 12/27/2024 12:19 AM [facility] RDW 12.8 12.0 - 15.0 % 12/27/2024 12:19 AM [facility] PLT 285 150 - 400 10*3/??L 12/27/2024 12:19 AM [facility] MPV 8.1 7.0 - 14.0 fL 12/27/2024 12:19 AM [facility] Neut % 77.7 45.0 - 85.0 % 12/27/2024 12:19 AM [facility] Lymph % 13.9(L) 15.0 - 45.0 % 12/27/2024 12:19 AM [facility] [place] % 6.9 0.0 - 12.0 % 12/27/2024 12:19 AM [facility] Eos % 1.0 0.0 - 7.0 % 12/27/2024 12:19 AM [facility] Baso % 0.5 0.0 - 3.0 % 12/27/2024 12:19 AM [facility] NRBC% 0 0 /100 WBC /100 WBC 12/27/2024 12:19 AM [facility] Neut # 7.5 2.2 - 9.5 10*3/??L 12/27/2024 12:19 AM [facility] Lym # 1.3 0.7 - 5.0 10*3/??L 12/27/2024 12:19 AM [facility] [place] # 0.7 0.0 - 1.3 10*3/??L 12/27/2024 12:19 AM [facility] Eos # 0.1 0.0 - 0.4 10*3/??L 12/27/2024 12:19 AM [facility] Baso # 0.0 0.0 - 0.3 10*3/??L 12/27/2024 12:19 AM [facility] Blood Venipuncture / Unknown 12/27/2024 12:02 AM EST 12/27/2024 12:02 AM EST us Anali Joyce MD LAB BLOOD ORDERABLES Final Res ult [facility] [address] [place] [address] * Salicylate level (12/27/2024 12:02 AM EST) Salicylate <3.0 <30.0 mg/dL 12/27/2024 12:31 AM EST [facility] Blood Venipuncture / Unknown 12/27/2024 12:02 AM EST 12/27/2024 12:02 AM EST Anali Joyce MD LAB BLOOD ORDERABLES Final Res ult Performing Organization Address [facility] de Phone Number [facility] [address] [place] [phone] * (ABNORMAL) Acetaminophen level (12/27/2024 12:02 AM EST) Acetaminophen Level <2(L) 10 - 20 ug/mL 12/27/2024 12:31 AM EST [facility] Blood Venipuncture / Unknown 12/27/2024 12:02 AM EST 12/27/2024 12:02 AM EST Anali Joyce MD LAB BLOOD ORDERABLES Final Res ult Performing Organization Address [facility] de Phone Number [facility] [address] [place] [address] * Ethanol (12/27/2024 12:02 AM EST) Ethanol Lvl <3 <10 mg/dL 12/27/2024 12:31 AM EST [facility] Blood Venipuncture / Unknown 12/27/2024 12:02 AM EST 12/27/2024 12:02 AM EST Anali Joyce MD LAB BLOOD ORDERABLES Final Res ult Performing Organization Address [facility] de Phone Number [facility] [address] [place] [address] documented in this encounter Visit Diagnoses Diagnosis Suicidal ideation- Primary Suicidal ideation Cellulitis Cellulitis and abscess of unspecified site documented in this encounter Admitting Diagnoses Diagnosis Suicidal ideation documented in this encounter Administered Medications Active Administered Medications - up to 3 most recent administrations Medication Order MAR Action Action Date Dose Rate Site buprenorphine-naloxone (SUBOXONE) 8-2 MG per sublingual tablet 1 tablet 1 tablet, Sublingual, 3 times daily, First dose on Tue12/27/24 at 2200, Must be given SUBLINGUALLY. Patients should keep the tablets under the tongue until dissolved. Swallowing the tablets or giving via enteral tube reduces the bioavailability of the drug. Given 12/27/2024 11:10 PM EST 1 tablet cephalexin (KEFLEX) capsule 500 mg 500 mg, Oral, Every 6 hours scheduled, Indications: Skin and Skin Structure Infection, First dose on [facility] 12/27/24 at 1956Indications:Skin and Skin Structure Infection Given 12/28/2024 11:19 AM EST 500 mg Given 12/28/2024 6:31 AM EST 500 mg Given 12/27/2024 8:33 PM EST 500 mg docusate sodium (COLACE) capsule 100 mg 100 mg, Oral, 2 times daily, First dose on [facility] 12/27/24 at 2100 Given 12/28/2024 8:58 AM EST 100 mg Given 12/27/2024 8:33 PM EST 100 mg doxepin capsule 50 mg 50 mg, Oral, At bedtime, First dose on [facility] 12/27/24 at 2100 Given 12/27/2024 8:34 PM EST 50 mg haloperidol (HALDOL) tablet 5 mg 5 mg, Oral, 2 times daily, First dose on [facility] 12/27/24 at 2100 Given 12/28/2024 8:58 AM EST 5 mg Given 12/27/2024 8:34 PM EST 5 mg ibuprofen (ADVIL,MOTRIN) tablet 600 mg 600 mg, Oral, Every 8 hours PRN, moderate pain (4-6), Starting on [facility] 12/27/24 at 1720, For 4 days Given 12/28/2024 11:18 AM EST 600 mg Given 12/27/2024 5:33 PM EST 600 mg lamoTRIgine (LaMICtal) tablet 75 mg 75 mg, Oral, 2 times daily, First dose on [facility] 12/27/24 at 2100, Look-alike / Sound-alike Medication Given 12/28/2024 8:58 AM EST 75 mg Given 12/27/2024 8:34 PM EST 75 mg mirtazapine (REMERON) tablet 45 mg 45 mg, Oral, At bedtime, First dose on [facility] 12/27/24 at 2100 Given 12/27/2024 8:34 PM EST 45 mg nicotine polacrilex (NICORETTE) gum 2 mg 2 mg, Oral, Every 2 hour PRN, smoking cessation, Starting on Tue12/28/24 at 1304, Not to exceed 24 pieces/24 hours P-listed Waste Code- Use P-LISTED WASTE container, place med and packaging in small plastic bag before placing in waste container Given 12/28/2024 1:07 PM EST 2 mg ondansetron (ZOFRAN-ODT) disintegrating tablet 4 mg 4 mg, Oral, Every 6 hours PRN, nausea, vomiting, Starting on Tue12/28/24 at 1030 traZODone tablet 100 mg 100 mg, Oral, At bedtime, First dose on Tue12/27/24 at 2100 Given 12/27/2024 8:35 PM EST 100 mg Inactive Administered Medications - up to 3 most recent administrations Medication Order MAR Action Action Date Dose Rate Site ondansetron (ZOFRAN-ODT) disintegrating tablet 4 mg 4 mg, Oral, Once, On Tue12/28/24 at 0101, For 1 dose Given 12/28/2024 1:07 AM EST 4 mg documented in this encounter Active and Recently Administered Medications Times are shown in EST. Scheduled Medication Order 12/26/2024 12/27/2024 12/28/2024 buprenorphine-naloxone (SUBOXONE) 8-2 MG per sublingual tablet 1 tablet 1 tablet, Sublingual, 3 times daily, First dose on Tue12/27/24 at 2200, Must be given SUBLINGUALLY. Patients should keep the tablets under the tongue until dissolved. Swallowing the tablets or giving via enteral tube reduces the bioavailability of the drug. 2151 (Hold - Provider: Evelyne Tang, KAROL - Reason: Patient Sleeping)2310 (Given - Provider: Evelyne Tang RN) 0858 (Not Given - Provider: Chayito Bhakta RN - Reason: Patient/family refused - Comment: PATIENT REPORTS HE BELIEVES HE WILL THROW UP IF HE TAKES THIS MEDICATION.)1400 (Due - Provider: Mamie Rodriguez, PharmD)2000 (Due - Provider: Mamie Rodriguez, PharmD) cephalexin (KEFLEX) capsule 500 mg 500 mg, Oral, Every 6 hours scheduled, Indications: Skin and Skin Structure Infection, First dose on [facility] 12/27/24 at 1955 2032 (Given - Provider: Evelyne Tang RN)2117 (Not Given - Provider: Evelyne Tang RN - Reason: Already Given) 0631 (Given - Provider: Srini Ortega RN)1119 (Given - Provider: Chayito Bhakta RN)1799 (Due) docusate sodium (COLACE) capsule 100 mg 100 mg, Oral, 2 times daily, First dose on Tue12/27/24 at 2099 2032 (Given - Provider: Evelyne Tang RN) 0858 (Given - Provider: Chayito Bhakta RN)2099 (Due) doxepin capsule 50 mg 50 mg, Oral, At bedtime, First dose on Tue12/27/24 at 2099 2033 (Given - Provider: Evelyne Tang RN) 2099 (Due) haloperidol (HALDOL) tablet 5 mg 5 mg, Oral, 2 times daily, First dose on Tue12/27/24 at 2099 2033 (Given - Provider: Evelyne Tang RN) 0858 (Given - Provider: Chayito Bhakta RN)2099 (Due) lamoTRIgine (LaMICtal) tablet 75 mg 75 mg, Oral, 2 times daily, First dose on Tue12/27/24 at 2099, Look-alike / Sound-alike Medication 2033 (Given - Provider: Evelyne Tang RN) 0858 (Given - Provider: Chayito Bhakta RN)2099 (Due) mirtazapine (REMERON) tablet 45 mg 45 mg, Oral, At bedtime, First dose on Tue12/27/24 at 2099 2033 (Given - Provider: Evelyne Tang RN) 2099 (Due) ondansetron (ZOFRAN-ODT) disintegrating tablet 4 mg (COMPLETED) 4 mg, Oral, Once, On Tue12/28/24 at 010, For 1 dose 0107 (Given - Provid er: Srini Ortega RN) traZODone tablet 100 mg 100 mg, Oral, At bedtime, First dose on Tue12/27/24 at 2099 2034 (Given - Provider: Evelyne Mentzer, RN) 2100 (Due) PRN Medication Order 12/26/2024 12/27/2024 12/28/2024 ibuprofen (ADVIL,MOTRIN) tablet 600 mg 600 mg, Oral, Every 8 hours PRN, moderate pain (4-6), Starting on [facility] 12/27/24 at 1720, For 4 days 1733 (Given - Provider: Evelyne Tang RN) 1118 (Given - Provider: Chayito Bhakta RN) nicotine polacrilex (NICORETTE) gum 2 mg 2 mg, Oral, Every 2 hour PRN, smoking cessation, Starting on Tue12/28/24 at 1304, Not to exceed 24 pieces/24 hours P-listed Waste Code- Use P-LISTED WASTE container, place med and packaging in small plastic bag before placing in waste container 1307 (Given - Provid er: Chayito Bhakta RN) ondansetron (ZOFRAN-ODT) disintegrating tablet 4 mg 4 mg, Oral, Every 6 hours PRN, nausea, vomiting, Starting on Tue12/28/24 at 1030 documented in this encounter Care Teams [employer] Relationship Specialty [place] [id number] PCP - General 12/25/24 documented as of this encounter
--- OUTSIDE RECORDS SUMMARY | 2024-12-28 16:50 | XMS_ITS | Encounter Summary ---
Author Organization [facility] Address [address] [place] [address] Care Team Providers Care On Site Soil Evaluator Name Role Phone Kye Tobias MD Unavailable [phone] Kye Tobias MD Primary Care Provider Nellie Nava MD Primary Care Provider [phone] Brayden Flanagan MD Primary Care Provider [phone] Pcp, No Primary Care Provider Unavailabl e Pcp, No Primary Care Provider Unavailabl e Reason for Visit * Reason Onset Date Comments TCM 08/25/2016 pt d/c on Encounter Details Date Type Department Care Team (Late st Contact Info) Description 08/25/2016 Telephone [facility] [address] [place] [address] Kye Tobias MD [address] [place], [place] [phone] [facility] (pt d/c on 08/24/16) Social History Tobacco Use Types Packs/Day Years Used Date Smoking Tobacco: Every Day Cigarettes Smokeless Tobacco: Never Comments:12 cigs per day Alcohol Use Standard Drinks/Week Comments Yes 0 [...] Telephone Encounter - Naty Manzano RN - 08/27/2016 9:50 AM EDT rtn call to pt, n/a, l/m re: ov on 09/09 and to call for any questions / concerns * Telephone Encounter - Natalie Carbajal - 08/26/2016 12:18 PM EDT [facility]-pt feeling fine-ph# [phone] * Telephone Encounter - Mirna Ren RN - 08/25/2016 4:26 PM EDT TCM - I attempted to call pt, but he didn't answer his phone. LM to call me back. documented in this encounter Plan of Treatment Not on file documented as of this encounter Visit Diagnoses Not on filedocumented in this encounter Care Teams On Site Soil Evaluator Relationship Specialty Start Date End Date Kye Tobias MD PCP - Family Medicine 06/26/15 12/24/24 Kye Tobias MD PCP - General Internal Medicine 08/24/16 01/15/18 Nellie Nava MD [address] [place] [address] PCP - General Internal Medicine 01/16/18 03/06/18 Brayden Flanagan MD [address] [place] [address] PCP - General Family Medicine 03/07/18 07/02/24 [place] [id number] PCP - General 07/03/24 11/26/24 [place] [id number] PCP - General 12/25/24 documented as of this encounter
--- OUTSIDE RECORDS SUMMARY | 2024-12-28 16:50 | XMS_ITS | Encounter Summary ---
Author Organization [facility] Address [address] [place] [address] Care Team Providers Care Summer Law Associate Name Role Phone Kye Tobias MD Unavailable [phone] Kye Tobias MD Primary Care Provider [phone] Nellie Nava MD Primary Care Provider [phone] Brayden Flanagan MD Primary Care Provider [phone] Pcp, No Primary Care Provider Unavailabl e Pcp, No Primary Care Provider Unavailabl e Reason for Referral * Diagnostic Imaging (Routine) - Closed Specialty Diagnoses / Procedures Referred By Kristy garnett Referred To Contact Radiology Diagnoses Dysuria Procedures CT abdomen pelvis without contrast CT abdomen pelvis with contrast Awilda Montes NP [address] [facility], [address] [address] Phone: tel: fax: Referral ID Status Reason Start Date Expiration Date Visits Re quested Visits Authorized [id number] Closed 07/12/2017 07/12/2018 1 1 Encounter Details Date Type Department Care Team (Late st Contact Info) Description 07/18/2017 Ancillary Orders [facility] [address] [place] [address] Awilda Montes NP [address] [place] [id number] [place] [phone] Dysuria (Primary Dx) Social History Tobacco Use Types Packs/Day Years [...] documented as of this encounter Results * CT abdomen pelvis without contrast (07/18/2017 1:48 PM EDT) Anatomical Region Laterality Modality Abdomen, Ortho Abdomen Computed Tomography 07/18/2017 2:12 PM EDT Impressions 07/18/2017 2:33 PM EDT IMPRESSION: No urinary tract calculus or obstruction. No prostatic enlargement. Moderate amount of colonic stool. Narrative 07/18/2017 2:33 PM EDT INDICATION: urinary pressure for two weeks Axial CT images are obtained to the abdomen and pelvis without oral or intravenous contrast. The kidneys are normal in size without calculus or hydronephrosis. No ureteral calculus or dilatation is present. No bladder calculus is present. Prostate gland appears normal. The remainder of the exam is limited by the lack of oral and intravenous contrast. No abnormalities of the liver, spleen, pancreas or adrenal glands are noted. No bowel distention is present. A moderate amount of colonic stool is noted. Procedure Note Aden Velazquez MD - 07/18/2017 INDICATION: urinary pressure for two weeks Axial CT images are obtained to the abdomen and pelvis without oral orintravenous contrast. The kidneys are normal in size without calculus or hydronephrosis. Noureteral calculus or dilatation is present. No bladder calculus ispresent. Prostate gland appears normal. The remainder of the exam is limited by the lack of oral and intravenouscontrast. No abnormalities of the liver, spleen, pancreas or adrenalglands are noted. No bowel distention is present. A moderate amount ofcolonic stool is noted. IMPRESSION: No urinary tract calculus or obstruction. No prostatic enlargement. Moderate amount of colonic stool. us Awilda Elina Montes AIR TE[employer] IMG CT ORDERABLES Final Result documented in this encounter Visit Diagnoses Diagnosis Dysuria Dysuria- Primary documented in this encounter Care Teams Summer Law Associate Relationship Specialty Start Date End Date Kye Tobias MD PCP - Family Medicine 06/26/15 12/24/24 Kye Tobias MD PCP - General Internal Medicine 08/24/16 01/15/18 Nellie Nava MD [address] [place] [address] PCP - General Internal Medicine 01/16/18 03/06/18 Brayden Flanagan MD [address] [place] [address] PCP - General Family Medicine 03/07/18 07/02/24 [place] [id number] PCP - General 07/03/24 11/26/24 [place] [id number] PCP - General 12/25/24 documented as of this encounter
--- OUTSIDE RECORDS SUMMARY | 2024-12-28 16:50 | XMS_ITS | Encounter Summary ---
Author Organization [facility] Address [address] [place] [address] Care Team Providers Care Senior Java Web Developer Name Role Phone Kye Tobias MD Unavailable [phone] Reason for Visit * Reason Comments Psychiatric Evaluation Encounter Details Date Type Department Care Team (Late st Contact Info) Description 11/28/2024 1:38 AM EST - 11/28/2024 2:18 AM EST Emergency [facility] - [address] [phone] Mario Steele MD [address] [place] [address] [place] [address] Discharge Disposition: Left Without Being Seen Social History Tobacco Use Types Packs/Day Years [...] Sign Reading Time Taken Comments Blood Pressure 153/112 11/28/2024 2:15 AM EST Pulse 111 11/28/2024 2:15 AM EST Temperature 36.6 ??C (97.8 ??F) 11/28/2024 2:15 AM ES T Respiratory Rate 20 11/28/2024 2:15 AM EST Oxygen Saturation 100% 11/28/2024 2:15 AM EST Inhaled Oxygen Concentration - - Weight 81.6 kg (180 lb) 11/28/2024 2:15 AM EST Height 188 cm (6' 2 ) 11/28/2024 2:15 AM EST Body Mass Index 23.11 11/28/2024 2:15 AM EST documented in this encounter Medications at Time of Discharge OLANZapine (ZyPREXA) 20 MG tablet Take 1 tablet (20 mg total) by mouth at bedtime cyclobenzaprine (FLEXERIL) 10 MG tablet Take 1 [...] on filedocumented in this encounter Care Teams Senior Java Web Developer Relationship Specialty Start Date End Date Kye Tobias MD PCP - Family Medicine 06/26/15 12/24/24 documented as of this encounter
--- OUTSIDE RECORDS SUMMARY | 2024-12-28 16:50 | XMS_ITS | Encounter Summary ---
Author Organization [facility] Address [address] [place] [address] Care Team Providers Care Pecan Gatherer Name Role Phone Key Tobias MD Unavailable [phone] Kye Tobias MD Primary Care Provider Nellie Nava MD Primary Care Provider [phone] Brayden Flanagan MD Primary Care Provider [phone] Pcp, No Primary Care Provider Unavailabl e Pcp, No Primary Care Provider Unavailabl e Reason for Visit * Reason Onset Date Comments Sick Call 09/08/2016 New patient. Brigitte k pain x 1 week. Wants NA to address at [facility] tomorrow 09/09/16 at 3:00. Encounter Details Date Type Department Care Team (Late st Contact Info) Description 09/08/2016 Telephone [facility] [address] [place] [address] Kye Tobias MD [address] [place] [address] Sick Call (New patient. Back pain x 1 week. Wants NA to address at [facility] tomorrow 09/09/16 at 3:00. ) Social History Tobacco Use Types Packs/Day [...] on filedocumented in this encounter Care Teams Pecan Gatherer Relationship Specialty Start Date End Date Kye Tobias MD PCP - Family Medicine 06/26/15 12/24/24 Kye Tobias MD PCP - General Internal Medicine 08/24/16 01/15/18 Nellie Nava MD [address] [place] [address] PCP - General Internal Medicine 01/16/18 03/06/18 Brayden Flanagan MD [address] [place] [phone] PCP - General Family Medicine 03/07/18 07/02/24 [place] [id number] PCP - General 07/03/24 11/26/24 [place] [id number] PCP - General 12/25/24 documented as of this encounter
--- OUTSIDE RECORDS SUMMARY | 2024-12-28 16:50 | XMS_ITS | Encounter Summary ---
Author Organization [facility] Address [address] [place] [address] Care Team Providers Care Screening Unit Registered Nurse Name Role Phone Kye Tobias MD Unavailable [phone] Kye oTbias MD Primary Care Provider Nellie Nava MD Primary Care Provider [phone] Brayden Flanagan MD Primary Care Provider [phone] Pcp, No Primary Care Provider Unavailabl e Pcp, No Primary Care Provider Unavailabl e Encounter Details Date Type Department Care Team (Late st Contact Info) Description 01/13/2017 Lab Requisition [address] [address] Sameera Maki [facility] [address] [address] Bipolar disorder, current episode depressed, severe, with psychotic features (HCC) Social History Tobacco Use Types Packs/Day Years [...] Procedure Name Priority Date/Time Associated Diagnosis Comments T3 TOTAL Routine 01/13/2017 3:34 PM EST Bipolar disorder, current episode depressed, severe, with psychotic features (HCC) TSH WITH REFLEX TO FREE T4 Routine 01/13/2017 3:34 PM EST Bipolar disorder, current episode depressed, severe, with psychotic features (HCC) T4, TOTAL Routine 01/13/2017 3:34 PM EST Bipolar disorder, current episode depressed, severe, with psychotic features (HCC) HEMOGLOBIN A1C Routine 01/13/2017 3:34 PM EST Bipolar disorder, current episode depressed, severe, with psychotic features (HCC) GLUCOSE RANDOM Routine 01/13/2017 3:34 PM EST Bipolar disorder, current episode depressed, severe, with psychotic features (HCC) LITHIUM LEVEL Routine 01/13/2017 3:34 PM EST Bipolar disorder, current episode depressed, severe, with psychotic features (HCC) LIPID PANEL Routine 01/13/2017 3:34 PM EST Bipolar disorder, current episode depressed, severe, with psychotic features (HCC) documented in this encounter Results * T4 (01/13/2017 3:34 PM EST) T4, Total 4.7 4.5 - 12.0 ug/dL 01/13/2017 9:56 PM EST [facility] Blood specimen (specimen) Venipuncture / Unknown 01/13/2017 3:34 PM EST 01/13/2017 3:34 PM EST us Sameera Maki LAB BLOOD ORDERABLES Final Resul t [facility] [address] [place], [place] * T3 (01/13/2017 3:34 PM EST) T3, Total 0.77 0.60 - 1.81 ng/mL 01/13/2017 9:56 PM EST [facility] Blood specimen (specimen) Venipuncture / Unknown 01/13/2017 3:34 PM EST 01/13/2017 3:34 PM EST Sameera Maki LAB BLOOD ORDERABLES Final Resul t Performing Organization Address [facility]/ZIP Co de Phone Number [facility] [address] [place], [place] * TSH (01/13/2017 3:34 PM EST) TSH 0.932 0.350 - 5.500 uIU/mL 01/13/2017 6:44 PM EST [facility] Blood specimen (specimen) Venipuncture / Unknown 01/13/2017 3:34 PM EST 01/13/2017 3:34 PM EST Sameera Maki LAB BLOOD ORDERABLES Final Resul t Performing Organization Address [facility] Co de Phone Number [facility] [address] [place] [phone] * Hemoglobin A1c (01/13/2017 3:34 PM EST) Hemoglobin A1C 5.3 4.6 - 6.0 % 01/13/2017 8:22 PM EST [facility] Estimated Average Glucose eAG 105.4 85.0 - 126.0 mg/dL 01/13/2017 8:22 PM EST [facility] Blood specimen (specimen) 01/13/2017 3:34 PM EST 01/13/2017 3:34 PM EST Sameeramala Christopherati LAB BLOOD ORDERABLES Final Resul t Performing Organization Address [facility] Co de Phone Number [facility] [address] [place], [place] * (ABNORMAL) Lipid panel (01/13/2017 3:34 PM EST) Cholesterol 237(H) 0 - 199 mg/dL 01/13/2017 6:38 PM EST [facility] Triglycerides 140 10 - 200 mg/dL 01/13/2017 6:38 PM EST [facility] HDL 61.4 35.0 - 70.0 mg/dL 01/13/2017 6:38 PM EST [facility] LDL Calculated 148(H) 0 - 100 mg/dL 01/13/2017 6:38 PM EST [facility] Cardiac Risk Factor 3.9 0.0 - 5.0 01/13/2017 6:38 PM EST [facility] Blood specimen (specimen) Venipuncture / Unknown 01/13/2017 3:34 PM EST 01/13/2017 3:34 PM EST [facility] - 01/13/2017 6:38 PM EST Cardiac Risk Factor: ?Males ? Females 2x Average Risk ?9.6 ?7.1 3x Average Risk ? 23.4 ? 11.0 Sameera Barnhart [facility] LAB BLOOD ORDERABLES Final Resul t Performing Organization Address [facility]/ZIP Co de Phone Number [facility] [address] [place] [phone] * Glucose, random (01/13/2017 3:34 PM EST) Glucose 92 70 - 100 mg/dL 01/13/2017 6:38 PM EST [facility] Blood specimen (specimen) Venipuncture / Unknown 01/13/2017 3:34 PM EST 01/13/2017 3:34 PM EST Sameeramala Barnhart [facility] LAB BLOOD ORDERABLES Final Resul t Performing Organization Address [facility]/ZIP Co de Phone Number [facility] [address] [place] [phone] * (ABNORMAL) Cool level (01/13/2017 3:34 PM EST) Cool 0.34(L) 0.50 - 1.30 mEq/L 01/13/2017 7:02 PM EST [facility] Blood specimen (specimen) Venipuncture / Unknown 01/13/2017 3:34 PM EST 01/13/2017 3:34 PM EST us Sameera Maki LAB BLOOD ORDERABLES Final Resul t [facility] [address] [place] [address] documented in this encounter Visit Diagnoses Diagnosis Bipolar disorder, current episode depressed, severe, with psychotic features (HCC) documented in this encounter Care Teams Screening Unit Registered Nurse Relationship Specialty Start Date End Date Kye Tobias MD PCP - Family Medicine 06/26/15 12/24/24 Kye Tobias MD PCP - General Internal Medicine 08/24/16 01/15/18 Nellie Nava MD [address] [place] [address] PCP - General Internal Medicine 01/16/18 03/06/18 Brayden Flanagan MD [address] [place] [phone] PCP - General Family Medicine 03/07/18 07/02/24 [place] [id number] PCP - General 07/03/24 11/26/24 [place] [id number] PCP - General 12/25/24 documented as of this encounter
--- OUTSIDE RECORDS SUMMARY | 2024-12-28 16:50 | XMS_ITS | Encounter Summary ---
Author Organization [facility] Address [address] [place] [address] Care Team Providers Care Multimedia Journalist Name Role Phone Kye Tobias MD Primary Care Provider [phone] Kye Tobias MD Unavailable [phone] Pcp, No Primary Care Provider Unavailabl e Kye Tobias MD Primary Care Provider [phone] Nellie Nava MD Primary Care Provider [phone] Brayden Flanagan MD Primary Care Provider [phone] Pcp, No Primary Care Provider Unavailabl e Pcp, No Primary Care Provider Unavailabl e Reason for Visit * Reason Onset Date Comments ? referrals 06/19/2015 Pt states that a t yesterday's OV he was supposed to be referred to an eye doctor and also pain medicine. No referrals in system Encounter Details Date Type Department Care Team (Late st Contact Info) Description 06/19/2015 Telephone [facility] [address] [place] [address] Kye oTbias MD [address] [place], [place] [phone] ? referrals (Pt states that at yesterday's OV he was supposed to be referred to an eye doctor and also pain medicine. No referrals in system) Social History Tobacco Use Types Packs/Day Years Used Date Smoking Tobacco: Every Day Cigarettes Smokeless Tobacco: Never Comments:12 cigs per day Alcohol Use Standard Drinks/Week Comments Yes 0 (1 standard drink = 0.6 oz pur e alcohol) Sex and Gender Information Value Date Recorded [...] on filedocumented in this encounter Care Teams Multimedia Journalist Relationship Specialty Start Date End Date Kye Tobias MD PCP - General Internal Medicine 03/06/15 08/16/16 Kye Tobias MD PCP - Family Medicine 06/26/15 12/24/24 [place] [id number] PCP - General 08/17/16 08/23/16 Kye Tobias MD PCP - General Internal Medicine 08/24/16 01/15/18 Nellie Nava MD [address] [place] [address] PCP - General Internal Medicine 01/16/18 03/06/18 Brayden Flanagan MD [address] [place] [address] PCP - General Family Medicine 03/07/18 07/02/24 [place] [id number] PCP - General 07/03/24 11/26/24 [place] [id number] PCP - General 12/25/24 documented as of this encounter
--- OUTSIDE RECORDS SUMMARY | 2024-12-28 16:50 | XMS_ITS | Referral Summary ---
Author Organization [facility] Address [address] Main Number: [phone] (13/06) [place] [address] Care Team Providers Care Puller Machine Name Role Phone Unavailable Primary Care Provider Unavailabl e Allergies No known active allergies Social History Tobacco Use Types Packs/Day Years Used Date Smoking Tobacco: Some Days Smokeless Tobacco: Never Housing Answer Date Recorded What is your living situatio n today? I do not have a steady place to live (I am temporarily staying with others, in a hotel, in a penitentiary, living outside on the street, on a [...]
--- OUTSIDE RECORDS SUMMARY | 2024-12-28 16:50 | XMS_ITS | Encounter Summary ---
Author Organization [facility] Address [address] [place] [address] Care Team Providers Care Salesperson Shoes Name Role Phone Kye Tobias MD Unavailable [phone] Kye Tobias MD Primary Care Provider [phone] Nellie Nava MD Primary Care Provider [phone] Brayden Flanagan MD Primary Care Provider [phone] Pcp, No Primary Care Provider Unavailabl e Pcp, No Primary Care Provider Unavailabl e Reason for Visit * Reason Onset Date Comments TO NA: refill 08/19/2017 Senakot, Vit D3, flexeril & docusate sodium Encounter Details Date Type Department Care Team (Late st Contact Info) Description 08/19/2017 Telephone [facility] [address] [place] [address] Kye Tobias MD [address] [place], [place] [phone] TO NA: refill (Senakot, Vit D3, flexeril & docusate sodium ) Social History Tobacco Use Types Packs/Day [...] Telephone Encounter - Rimma Pina RN - 08/19/2017 1:42 PM EDT Ok for rf vit d , rf sent * Telephone Encounter - Rimma Pina RN - 08/19/2017 12:37 PM EDT Verified with pt he is on plain senokot , not senokot-s daily and colace daily rf senokot, colace ,and cyclobenzaprine sent Per Pt he is on vit d 2000 units since last hospitalization To md for approval documented in this encounter Plan of Treatment Not on file documented as of this encounter Visit Diagnoses Not on filedocumented in this encounter Care Teams Salesperson Shoes Relationship Specialty Start Date End Date Kye Tobias MD PCP - Family Medicine 06/26/15 12/24/24 Kye Tobias MD PCP - General Internal Medicine 08/24/16 01/15/18 Nellie Nava MD [address] [place] [address] PCP - General Internal Medicine 01/16/18 03/06/18 Brayden Flanagan MD [address] [place] [phone] PCP - General Family Medicine 03/07/18 07/02/24 [place] [id number] PCP - General 07/03/24 11/26/24 [place] [id number] PCP - General 12/25/24 documented as of this encounter
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
--- OUTSIDE RECORDS SUMMARY | 2024-12-28 16:50 | XMS_ITS | Encounter Summary ---
Author Organization [facility] Address [address] [place] [address] Care Team Providers Care Combatant Diver Officer Name Role Phone Kye Tobias MD Unavailable [phone] Kye Tobias MD Primary Care Provider Nellie Nava MD Primary Care Provider [phone] Brayden Flanagan MD Primary Care Provider [phone] Pcp, No Primary Care Provider Unavailabl e Pcp, No Primary Care Provider Unavailabl e Encounter Details Date Type Department Care Team (Late st Contact Info) Description 01/11/2018 Procedure [facility] - [address] [address] Social History Tobacco Use Types Packs/Day Years Used Date Smoking Tobacco: Former Cigarettes 1 20 Smokeless Tobacco: Never Comments:No [...] on filedocumented in this encounter Care Teams Combatant Diver Officer Relationship Specialty Start Date End Date Kye Tobias MD PCP - Family Medicine 06/26/15 12/24/24 Kye Tobias MD PCP - General Internal Medicine 08/24/16 01/15/18 Nellie Nava MD [address] [place] [address] PCP - General Internal Medicine 01/16/18 03/06/18 Brayden Flanagan MD [address] [place] [address] PCP - General Family Medicine 03/07/18 07/02/24 [place] [id number] PCP - General 07/03/24 11/26/24 [place] [id number] PCP - General 12/25/24 documented as of this encounter
--- OUTSIDE RECORDS SUMMARY | 2024-12-28 16:50 | XMS_ITS | Clinical Summary ---
Author Organization [facility] Address [address] [place] [address] Phone Care Team Providers Care Recycling Tech Name Role Phone AutomaticallyONE, SignedONE Unavailable Conditions or Problems No information available. Medications No information available. Medications Administered No information available. Allergies, Adverse Reactions, Alerts No information available. Results Date Name Value Unit Range Flag Description Lab Report: COMPREHENSIVE ME TABOLIC PANEL, GFR ESTIMATED (CALC), GLOBULI ... EAG 105 Glucose mean value [Mass/volume] in Blood Estimated from glycated hemoglobin HGBA1C 5.3 % 4.0-6.0 Hemoglobin A1c/Hemoglobin, total in Blood - % CHOL/HDL % 4.9 1.5-5.0 cholestero l/HDL ratio, serum, percent LDL 128 mg/dL 40-130 Cholesterol i n LDL [Mass/volume] in Serum or Plasma - mg/dL HDL 49 mg/dL 40-60 Cholesterol i n HDL [Mass/volume] in Serum or Plasma - mg/dL TRIGLYCERIDE 320 mg/dL 30-150 H Triglyce ride [Mass/volume] in Serum or Plasma - mg/dL CHOLESTEROL 241 mg/dL 125-200 H Cholester ol [Mass/volume] in Serum or Plasma - mg/dL BG FASTING 87 mg/dL 70-100 blood gluc ose, fasting Lab Report: VITAMIN B12, FOL ATE, THYROID STIMULATING HORMONE, FREE T4, S ... VIT D 25-OH 21 ng/mL 25-Hydrox ycalciferol [Mass/volume] in Serum or Plasma T4, FREE 0.73 ng/dL 0.80-1.80 L Thyroxine (T4) free [Mass/volume] in Serum or Plasma TSH ULTRA 1.330 u[iU]/mL 0.550-4.78 0 thyroid stimulating hormone (TSH), ultra sensitive FOLATE 14.5 ng/mL 3.35-12.51 H Folate [Ma ss/volume] in Serum or Plasma B12 479 pg/mL 211-911 Cobalamin (Vi tamin B12) [Mass/volume] in Serum or Plasma Lab Report: GLUCOSE FOR POCT BG FINGER 80 72-137 blood gluco se, finger stick Lab Report: CBC WITH DIFFERE NTIAL, COMPREHENSIVE METABOLIC PANEL, GFR ES ... A/G RATIO 1.1 Albumin/Lizet bulin [Mass Ratio] in Serum or Plasma GLOBULIN TOT 3.6 g/dL 2.3-4.0 Globulin [Mass/volume] in Serum GFRC > 60 mL/min/1. 73m2 > 60 Glomerular Filtration Rate Calculation SGPT (ALT) 38 U/L 13-61 Alanine aminotransferase [Enzymatic activity/volume] in Serum or Plasma SGOT (AST) 21 U/L 15-40 Aspartate aminotransferase [Enzymatic activity/volume] in Serum or Plasma ALK PHOS 84 U/L 50-136 Alkaline abrahan sphatase [Enzymatic activity/volume] in Blood BILI TOTAL 0.2 mg/dL 0.3-1.2 L Bilirubin. total [Mass/volume] in Serum or Plasma ALBUMIN 3.8 g/dL 3.4-5.5 Albumin [Mass/volume] in Serum or Plasma PROTEIN, TOT 7.4 g/dL 6.4-8.3 Protein [Mass/volume] in Serum or Plasma CALCIUM 9.0 mg/dL 8.3-10.3 Calcium [Moles/volume] in Serum or Plasma CREATININE 1.1 mg/dL 0.5-1.3 Creatinine [Mass/volume] in Serum or Plasma BUN 14 mg/dL 9-23 Urea nitrogen [Mass/volume] in Serum or Plasma BG RANDOM 84 mg/dL 70-100 Glucose [Mass/volume] in Blood ANION GAP 6 mEq/L 2-13 Anion gap 4 in Serum or Plasma CO2 TOTAL 30 MEQ/L mmol/L 22-34 carbon asia xide, serum, total CL SERUM 104 meq/L 99-113 Chloride [Moles/volume] in Serum or Plasma K SERUM 3.9 meq/L 3.5-5.5 Potassium [Moles/volume] in Serum or Plasma SODIUM 140 MEQ/L mmol/L 135-145 Sodium [Moles/volume] in Serum or Plasma Lab Report: CBC WITH DIFFERE NTIAL MPV 7.0 UM*3 fL 7.4-10.4 L Platelet me an volume [Entitic volume] in Blood by Davey RDW 12.3 % 11.5-14.5 Erythrocyte distribution width [Ratio] by Automated count MCHC 33.4 % 31.0-37.0 MCHC [Mass/ volume] by Automated count MCH 31.3 pg 26.0-34.0 MCH [Entiti c mass] by Automated count MCV 93.7 fL 80.0-99.0 MCV [Entiti c volume] by Automated count BASOPH COUNT 0.1 10*3/mm3 0-0.3 Basophi ls [#/volume] in Blood by Manual count EOS COUNT 0.3 10*3/mm3 0-0.50 eosinophil count, blood MONOCYTE CNT 0.6 10*3/mm3 0.0-0.8 monocyt e count, blood NEUTRO COUNT 5.5 10*3/mm3 1.8-7.7 neutrop hil count, blood BASOPHIL % 0.9 % 0-3 Basophils/ 100 leukocytes in Blood by Manual count EOSINOPHIL % 4.0 % 0-6 Eosinoph ils/100 leukocytes in Blood by Manual count MONOCYTE % 7.1 % 0-11 Monocytes/ 100 leukocytes in Blood by Automated count LYMPHS % 21.6 % 22-44 L Lymphocytes/ 100 leukocytes in Blood by Automated count PMN % 66.4 % 40-70 Neutrophils/1 00 leukocytes in Blood by Automated count PLATELETS 259 10*3/mm3 150-450 Platelets [#/volume] in Blood by Automated count HCT 43.5 % 41.0-53.0 Hematocrit [Volume Fraction] of Blood by Automated count HGB 14.5 g/dL 13.5-17.5 Hemoglobin [Mass/volume] in Blood RBC 4.64 10*6/mm3 4.50-5.90 Erythrocyt es [#/volume] in Blood by Automated count WBC 8.2 10*3/mm3 4.5-11.0 Leukocytes [#/volume] in Blood by Automated count Plan of Care No information available. Procedures No information available. Vital Signs No information available. Immunizations No information available. Advance Directives No information available.
--- OUTSIDE RECORDS SUMMARY | 2024-12-28 16:50 | XMS_ITS | Encounter Summary ---
Author Organization [facility] Address [address] [place] [address] Care Team Providers Care Product Development Consultant Name Role Phone Kye Tobias MD Unavailable [phone] Kye Tobias MD Primary Care Provider [phone] Nellie Nava MD Primary Care Provider [phone] Brayden Flanagan MD Primary Care Provider [phone] Pcp, No Primary Care Provider Unavailabl e Pcp, No Primary Care Provider Unavailabl e Reason for Visit * Reason Onset Date Comments To NA:Refill 11/30/2016 Pt was seen at [facility] and was prescribed [place] 300mg, Propanolol 10mg & Cymbalta DR 30mg but insurance will not fill because the presciber is an out of network prescriber. Would like NAM to prescribe so insurance will cover. Encounter Details Date Type Department Care Team (Late st Contact Info) Description 11/30/2016 Telephone [facility] [address] [place] [address] Kye Tobias MD [address] [place], [place] [phone] To NA:Refill (Pt was seen at [facility] and was prescribed [place] 300mg, Propanolol 10mg & Cymbalta DR 30mg but insurance will not fill because the presciber is an out of network prescriber. Would like NAM to prescribe so insurance will cover.) Social History Tobacco Use Types Packs/Day Years [...] encounter Miscellaneous Notes * Telephone Encounter - Kallie Mcallister LPN - 12/01/2016 9:39 AM EST Per [facility] ok to fill medications, e-scribed at this time. Patient called at this time to inform of same, no answer and no answering machine. * Telephone Encounter - Kallie Mcallister LPN - 11/30/2016 3:45 PM EST Patient arrived at the office with copies of handwritten scripts for [place] 300 mg BID, Propranolol 10 mg TID PRN, and Cymbalta DR 30 mg three tabs PO every am, along with rejection from the pharmacy secondary to out of network provider. To [facility] for review on 12/01/16. documented in this encounter Plan of Treatment Not on file documented as of this encounter Visit Diagnoses Not on filedocumented in this encounter Care Teams Product Development Consultant Relationship Specialty Start Date End Date Kye Tobias MD PCP - Family Medicine 06/26/15 12/24/24 Kye Tobias MD PCP - General Internal Medicine 08/24/16 01/15/18 Nellie Nava MD [address] [place] [address] PCP - General Internal Medicine 01/16/18 03/06/18 Brayden Flanagan MD [address] [place] [phone] PCP - General Family Medicine 03/07/18 07/02/24 [place] [id number] PCP - General 07/03/24 11/26/24 [place] [id number] PCP - General 12/25/24 documented as of this encounter
--- OUTSIDE RECORDS SUMMARY | 2024-12-28 16:50 | XMS_ITS | Encounter Summary ---
Author Organization [facility] Address [address] [place] [address] Care Team Providers Care Workers' Compensation Commissioner Name Role Phone Kye Tobias MD Unavailable [phone] Kye Tobias MD Primary Care Provider Nellie Nava MD Primary Care Provider Brayden Flanagan MD Primary Care Provider [phone] Pcp, No Primary Care Provider Unavailabl e Pcp, No Primary Care Provider Unavailabl e Reason for Visit * Reason Onset Date Comments TCM 09/03/2016 Admitted 08/27/16 , D/C on 09/01/16. Has New Patient appt with RAYNE 09/09/16 Encounter Details Date Type Department Care Team (Late st Contact Info) Description 09/03/2016 Telephone [facility] [address] [place] [address] Kye Tobias MD [address] [place], [place] [phone] TCM (Admitted 08/27/16, D/C on 09/01/16. Has New Patient appt with RAYNE 09/09/16) Social History Tobacco Use Types Packs/Day Years [...] encounter Miscellaneous Notes * Telephone Encounter - Mirna Ren RN - 09/08/2016 1:59 PM EDT TCM - Pt was discharged from [facility] on 09/01/16. I spoke to pt today, who said that he's hanging in there and trying to adjust . Pt states that he has a history of back pain and it's acting -up . Would like a referral to PT. He has a [employer] appt tomorrow, 09/09/[address] Tobias (which he's aware of) and will discuss it at that time. documented in this encounter Plan of Treatment Not on file documented as of this encounter Visit Diagnoses Not on filedocumented in this encounter Care Teams Workers' Compensation Commissioner Relationship Specialty Start Date End Date Kye Tobias MD PCP - Family Medicine 06/26/15 12/24/24 Kye Tobias MD PCP - General Internal Medicine 08/24/16 01/15/18 Nellie Nava MD [address] [place] [address] PCP - General Internal Medicine 01/16/18 03/06/18 Brayden Flanagan MD [address] [place] [address] PCP - General Family Medicine 03/07/18 07/02/24 [place] [id number] PCP - General 07/03/24 11/26/24 [place] [id number] PCP - General 12/25/24 documented as of this encounter
--- OUTSIDE RECORDS SUMMARY | 2024-12-28 16:50 | XMS_ITS | Encounter Summary ---
Author Organization [facility] Address [address] [place] [address] Care Team Providers Care Parts Counterman Name Role Phone Kye Tobias MD Unavailable [phone] Kye Tobias MD Primary Care Provider [phone] Nellie Nava MD Primary Care Provider [phone] Brayden Flanagan MD Primary Care Provider [phone] Pcp, No Primary Care Provider Unavailabl e Pcp, No Primary Care Provider Unavailabl e Reason for Visit * Reason Onset Date Comments TO NA_? ABX Strep 06/20/2017 patient's girl friend has strep throat and now he has a sore throat he wants something called into the pharmacy.. Offered ov but patient declines said he does not want to be seen he just wants something called in. Encounter Details Date Type Department Care Team (Late st Contact Info) Description 06/20/2017 Telephone [facility] [address] [place] [address] Kye Tobias MD [address] [place], [place] [id number] TO NA_? ABX Strep (patient's girlfriend has strep throat and now he has a sore throat he wants something called into the pharmacy.. Offered ov but patient declines said he does not want to be seen he just wants something called in.) Social History Tobacco Use Types Packs/Day Years [...] Telephone Encounter - Naty Manzano RN - 06/20/2017 3:[address] Tobias - ov needed Spoke w/ pt- scheduled w/ Nikia,HOT REPAIRMAN for 1115 am, pt may go to the [place] Walk [facility], if so will call and cancel * Telephone Encounter - Naty Manzano RN - 06/20/2017 12:34 PM EDT Ill x 1.5 days, afeb, Sore throat, fatigued, loose stools Girlfriend w/ strep throat, want abx, refusing OV Will review w/ NA documented in this encounter Plan of Treatment Not on file documented as of this encounter Visit Diagnoses Not on filedocumented in this encounter Care Teams Parts Counterman Relationship Specialty Start Date End Date Kye Tobias MD PCP - Family Medicine 06/26/15 12/24/24 Kye Tobias MD PCP - General Internal Medicine 08/24/16 01/15/18 Nellie Nava MD [address] [place] [address] PCP - General Internal Medicine 01/16/18 03/06/18 Brayden Flanagan MD [address] [place] [id number] PCP - General Family Medicine 03/07/18 07/02/24 [place] [id number] PCP - General 07/03/24 11/26/24 [place] [id number] PCP - General 12/25/24 documented as of this encounter
--- OUTSIDE RECORDS SUMMARY | 2024-12-28 16:50 | XMS_ITS | Encounter Summary ---
Author Organization [facility] Address [address] [place] [address] Care Team Providers Care Clinical Research Technician Name Role Phone Kye Tobias MD Primary Care Provider [phone] Kye Tobias MD Unavailable [phone] Pcp, No Primary Care Provider Unavailabl e Kye Tobias MD Primary Care Provider Nellie Nava MD Primary Care Provider [phone] Brayden Flanagan MD Primary Care Provider [phone] Pcp, No Primary Care Provider Unavailabl e Pcp, No Primary Care Provider Unavailabl e Reason for Visit * Reason Onset Date Comments back pain 06/18/2015 PT is requesting to see Dr Tobias today for back pain @ 1:45pm Encounter Details Date Type Department Care Team (Late st Contact Info) Description 06/18/2015 Telephone [facility] [address] [place] [address] Kye Tobias MD [address] [place] [address] back pain (PT is requesting to see Dr Tobias today for back pain @ 1:45pm) Social History Tobacco Use Types Packs/Day Years [...] on filedocumented in this encounter Care Teams Clinical Research Technician Relationship Specialty Start Date End Date Kye Tobias MD PCP - General Internal Medicine 03/06/15 08/16/16 Kye Tobias MD PCP - Family Medicine 06/26/15 12/24/24 [place] [id number] PCP - General 08/17/16 08/23/16 Kye Tobias MD PCP - General Internal Medicine 08/24/16 01/15/18 Nellie Nava MD [address] [place] [address] PCP - General Internal Medicine 01/16/18 03/06/18 Brayden Flanagan MD [address] [place] [phone] PCP - General Family Medicine 03/07/18 07/02/24 [place] [id number] PCP - General 07/03/24 11/26/24 [place] [id number] PCP - General 12/25/24 documented as of this encounter
--- OUTSIDE RECORDS SUMMARY | 2024-12-28 16:50 | XMS_ITS | Clinical Summary ---
Author Organization [facility] Address [address] [place] [address] Care Team Providers Care Loss Prevention Investigator Name Role Phone Pcp, No Primary Care Provider Unavailabl e Allergies No known active allergies Medications OLANZapine (ZyPREXA) 20 MG tablet Take 1 tablet (20 mg total) by mouth at bedtime Active docusate sodium 100 MG capsule Take 1 capsule (100 mg total) by mouth 2 (two) times a day Active haloperidol (HALDOL) 5 MG tablet Take 1 tablet (5 mg total) by mouth 2 (two) times a day Active buprenorphine-nalo xone (SUBOXONE) 8-2 MG per sublingual film Place 1 Film under the tongue 3 (three) times a day Active lamoTRIgine (LaMICtal) 25 MG tablet Take 3 tablets (75 mg total) by mouth 2 (two) times a day Active mirtazapine 45 MG tablet Take 1 tablet (45 mg total) by mouth at bedtime Active doxepin 50 MG capsule Take 1 capsule (50 mg total) by mouth at bedtime Active traZODone 100 MG tablet Take 1 tablet (100 mg total) by mouth at bedtime Active ibuprofen 600 MG tablet Take 1 tablet (600 mg total) by mouth 3 (three) times a day for 5 days 15 tablet 5 025 Active cephalexin (KEFLEX) 500 MG capsule Take 1 capsule (500 mg total) by mouth 3 (three) times a day for 5 days 15 capsule 5 025 Active ondansetron (ZOFRAN-ODT) 4 MG disintegrating tablet Dissolve 1 tablet (4 mg total) in mouth every 8 (eight) hours as needed for nausea for up to 15 days 15 tablet 5 025 Discontin ued(Med list clean-up) cyclobenzaprine (FLEXERIL) 10 MG tablet Take 1 tablet (10 mg total) by mouth 2 (two) times a day as needed for muscle spasms or back spasms for up to 10 days 20 tablet 5 025 Discontin ued(Med list clean-up) amoxicillin 500 MG capsule Take 1 capsule (500 mg total) by mouth 2 (two) times a day 025 Discontin ued(Thera py completed ) naproxen (NAPROSYN) 500 MG tablet Take 1 tablet (500 mg total) by mouth 2 (two) times a day with meals 025 Discontin ued(Med list clean-up) mirtazapine 7.5 MG tablet Take 1 tablet (7.5 mg total) by mouth at bedtime 025 Discontin ued(Dose adjustmen t) lamoTRIgine (LaMICtal) 100 MG tablet Take 1 tablet (100 mg total) by mouth daily 025 Discontin ued(Dose adjustmen t) DULoxetine 30 MG delayed release capsule Take 1 capsule (30 mg total) by mouth 2 (two) times a day 025 Discontin ued(Med list clean-up) traZODone 50 MG tablet Take 2 tablets (100 mg total) by mouth at bedtime 025 Discontin ued(Dose adjustmen t) Active Problems Problem Noted Date Diagnosed Date Geena 11/28/2024 Psychosis 08/28/2024 Suicidal ideation 06/01/2024 Depression with suicidal ideation 05/31/2022 Depression 04/19/2022 Seizures 09/28/2017 Headache 09/28/2017 Other male erectile dysfunction 09/19/2017 Dysuria 09/19/2017 Upper back pain on right side 06/17/2017 Acute appendicitis 02/01/2017 Appendicitis 01/31/2017 Drug-induced erectile dysfunction 01/13/2017 Schizo-affective schizophrenia 09/24/2016 Lipoma of left upper extremity 2016 Myopia of both eyes 2016 Smoker Generalized anxiety disorder Bipolar 1 disorder Pectus excavatum Chronic back pain Near sighted Resolved Problems Problem Noted Date Diagnosed Date Resolved Date Chronic back pain 10/07/2016 Chronic back pain 2016 Generalized anxiety disorder 2016 Bipolar 1 disorder 6 Encounters Date Type Department Care Team Description 12/27/2024 12:44 AM EST - 12/28/2024 1:[address] [phone] Anali Joyce MD Sanford, Shawn, MD McCarthy, Morgan, MD Prichard, Russell G, MD Borges, Eric, MD Suicidal ideation (Primary Dx); Cellulitis Discharge Disposition: [facility] Hospital other than [facility] 12/26/2024 8:37 PM EST - 12/26/2024 9:[address] [phone] Anali Bolaños MD Homeless (Primary Dx); H/O clavicle fracture Discharge Disposition: Home or Self Care 12/26/2024 9:05 AM EST - 12/26/2024 11:[address] [phone] Kenya Singh DO Eloped from emergency department (Primary Dx); Medication refill; Homelessness; Seizure-like activity (HCC) Discharge Disposition: Eloped 12/26/2024 Procedure Pass [address] [phone] 12/26/2024 Travel 11/28/2024 6:09 AM EST - 11/29/2024 10:[address] [phone] Kenya Barone MD Borges, Eric, MD Gao, Gabriel T, MD Kazakin, Anatoly, MD Geena (HCC) (Primary Dx); Polysubstance abuse (HCC); Clavicle fracture Discharge Disposition: Psychiatric Hospital other than [facility] 11/28/2024 1:38 AM EST - 11/28/2024 2:[address] [phone] Mario Steele MD Discharge Disposition: Left Without Being Seen 11/27/2024 8:05 PM EST - 11/27/2024 10:[address] [phone] Jose Escobedo MD Clavicle pain (Primary Dx); Clavicle fracture Discharge Disposition: Home or Self Care 11/27/2024 1:00 PM EST - 11/27/2024 8:04 PM EST Hospital Encounter [facility] [address] [place] [phone] Closed displaced fracture of acromial end of right clavicle, initial encounter Discharge Disposition: Home or Self Care 11/27/2024 1:00 PM EST Office Visit [facility] [address] [place] [phone] Flor Kang MD Closed displaced fracture of acromial end of right clavicle with nonunion, subsequent encounter (Primary Dx) 11/27/2024 10:27 AM EST - 11/27/2024 11:[address] [phone] Discharge Disposition: Left Without Being Seen 11/27/2024 12:13 AM EST - 11/27/2024 1:[address] [phone] Mario Steele MD Clavicle fracture (Primary Dx) Discharge Disposition: Home or Self Care 11/27/2024 Travel 11/27/2024 Telephone [facility] [address] [place] [phone] Flor Kang MD scheduling call 11/26/2024 5:23 PM EST - 11/26/2024 9:50 PM EST Emergency [facility] - [address] [phone] Jose Escobedo MD Discharge Disposition: Left Without Being Seen from Last 3 Months Immunizations Name Administration Dates Next Due Influenza, Quadrivalent, Preservative Free 09/19 Family History Relation Name Status Comments Brother Alive Father Alive Mother Alive Social History Tobacco Use Types Packs/Day Years Used Date Smoking Tobacco: Every Day Cigarettes 1 20 Smokeless Tobacco: Never Tobacco Cessation:Counseling Given: Yes Comments:No interest in quitting. Alcohol Use Standard Drinks/Week Comments No 0 [...] file Not on file Not on file Last Filed Vital Signs [...] Mass Index 23.11 12/27/2024 4:42 AM EST Plan of Treatment Health Maintenance Due Date Last Done Comments Pneumococcal Vaccines 0-64 yrs (includes High Risk) (1 of 2 - PCV) 1986 Hepatitis B Screening 1998 DTaP,Tdap,and Td Vaccines (1 - Tdap) 1999 Annual Physical 05/26/2016 05/26/2015 Cholesterol Screening 01/13/2022 01/13/2017 , 06/20/2015 COVID-19 Vaccine (1 - 2024-2 5 season) 2024 Influenza Vaccine (#1) 2024 7, 08/05/2011 HIB Vaccines Aged Out No longer eligi ble based on patient's age to complete this topic Hepatitis A Vaccine Aged Out No longe r eligible based on patient's age to complete this topic Procedures Procedure Name Priority Date/Time Associated Diagnosis Comments ECG 12-LEAD STAT 12/28/2024 10:06 AM EST TOXICOLOGY SCREEN, URINE (NON FCU) STAT 12/27/2024 12:43 AM EST TOXICOLOGY SCREEN, URINE STAT 12/27/2024 12:43 AM EST LIGHT BLUE TOP STAT 12/27/2024 12:02 AM EST LAVENDER TOP STAT 12/27/2024 12:02 AM EST RED TOP STAT 12/27/2024 12:02 AM EST GREEN PST TOP STAT 12/27/2024 12:02 AM EST COMPREHENSIVE METABOLIC PANEL STAT 12/27/2024 12:02 AM EST CBC AND AUTO DIFFERENTIAL STAT 12/27/2024 12:02 AM EST SALICYLATE LEVEL STAT 12/27/2024 12:0 2 AM EST ACETAMINOPHEN LEVEL STAT 12/27/2024 1 2:02 AM EST ETHANOL STAT 12/27/2024 12:02 AM EST EXTRA TUBES STAT 12/27/2024 12:[address] HEAD WO CONTRAST STAT 12/26/2024 1 0:48 AM EST LIGHT BLUE TOP STAT 12/25/2024 10:47 PM EST LAVENDER TOP STAT 12/25/2024 10:47 PM EST RED TOP STAT 12/25/2024 10:47 PM EST GREEN PST TOP STAT 12/25/2024 10:47 PM EST SALICYLATE LEVEL STAT 12/25/2024 10:4 7 PM EST ACETAMINOPHEN LEVEL STAT 12/25/2024 1 0:47 PM EST ETHANOL STAT 12/25/2024 10:47 PM EST LIPASE STAT 12/25/2024 10:47 PM EST COMPREHENSIVE METABOLIC PANEL STAT 12/25/2024 10:47 PM EST CBC AND AUTO DIFFERENTIAL STAT 12/25/2024 10:47 PM EST EXTRA TUBES STAT 12/25/2024 10:47 PM EST TOXICOLOGY SCREEN, URINE (NON FCU) STAT 11/28/2024 3:42 PM EST TOXICOLOGY SCREEN, URINE STAT 11/28/2024 3:42 PM EST ETHANOL STAT 11/28/2024 8:36 AM EST SALICYLATE LEVEL STAT 11/28/2024 8:36 AM EST ACETAMINOPHEN LEVEL STAT 11/28/2024 8 :36 AM EST LIPASE STAT 11/28/2024 8:36 AM EST COMPREHENSIVE METABOLIC PANEL STAT 11/28/2024 8:36 AM EST CBC AND AUTO DIFFERENTIAL STAT 11/28/2024 8:36 AM EST XR CLAVICLE RIGHT Routine 11/27/2024 1:1 4 PM EST Closed displaced fracture of acromial end of right clavicle, initial encounter XR SHOULDER 2+ VW RIGHT GALINA 11/27/2024 12:36 AM EST XR CLAVICLE RIGHT GALINA 11/27/2024 12: 36 AM EST LIPID PANEL Routine 01/13/2017 3:34 PM EST Bipolar disorder, current episode depressed, severe, with psychotic features (HCC) from Last 3 Months or Most Recently Relevant to Health Maintenance Results * (ABNORMAL) ECG 12-LEAD (12/28/2024 10:06 [...] Toxicology screen, urine (12/27/2024 12:43 AM EST) Only the most recent of2 resultswithin the time period is included. Amphetamine Qualitative, Ur None Detected None Detected 12/27/2024 1:20 AM EST [facility] Barbiturates Qualitative, Ur None Detected None Detected 12/27/2024 1:20 AM EST [facility] Benzodiazepines Qualitative, Ur None Detected None Detected 12/27/2024 1:20 AM EST [facility] Methadone Qualitative, Ur None Detected None Detected 12/27/2024 1:20 AM EST [facility] Opiates Qualitative, Ur None Detected None Detected 12/27/2024 1:20 AM EST [facility] Cannabinoids Qualitative, Ur Detected(A) None Detected 12/27/2024 1:20 AM EST [facility] Cocaine Qualitative, Ur Detected(A) None Detected 12/27/2024 1:20 AM EST [facility] Oxycodone Qualitative Urine None Detected None Detected 12/27/2024 1:20 AM EST [facility] Buprenorphine Qualitative Urine Detected(A) None Detected 12/27/2024 1:20 AM EST [facility] Fentanyl Qualitative, Ur None Detected None Detected 12/27/2024 1:20 AM [facility] Creatinine, Urine 66.0 20.0 - 400.0 mg/dL 12/27/2024 1:20 AM [facility] Urine Urine specimen obtained by clean catch procedure / Unknown Collection / Unknown 12/27/2024 12:43 AM EST 12/27/2024 12:57 AM EST Narrative [facility] - 12/27/2024 1:20 AM EST [...] context of the patient's ??clinical condition. us Anali Joyce MD URINE ORDERABLES Final Result [facility] [address] [place] [id number] * Green PST Top (12/27/2024 12:02 AM EST) Only the most recent of2 resultswithin the time period is included. Extra Tube Auto resulted. 12/27/2024 4:06 AM EST [facility] Comment:Hold for add-ons. Blood Venipuncture / Unknown 12/27/2024 12:02 AM EST 12/27/2024 12:02 AM EST Anali Joyce MD LAB BLOOD ORDERABLES Final Res ult Performing Organization Address City/[facility]/ZIP Co de Phone Number [facility] [address] [place] [address] * Lavender Top (12/27/2024 12:02 AM EST) Only the most recent of2 resultswithin the time period is included. Extra Tube Auto resulted. 12/27/2024 4:06 AM EST [facility] Comment:Hold for add-ons. Blood Venipuncture / Unknown 12/27/2024 12:02 AM EST 12/27/2024 12:02 AM EST Anali Joyce MD LAB BLOOD ORDERABLES Final Res ult Performing Organization Address City/[facility] Co de Phone Number [facility] [address] [place] [address] * Red Top (12/27/2024 12:02 AM EST) Only the most recent of2 resultswithin the time period is included. Extra Tube Auto resulted. 12/27/2024 4:06 AM EST [facility] Comment:Hold for add-ons. Blood Venipuncture / Unknown 12/27/2024 12:02 AM EST 12/27/2024 12:02 AM EST us Anali Joyce MD LAB BLOOD ORDERABLES Final Res ult [facility] [address] [place] [address] * Light Blue Top (12/27/2024 12:02 AM EST) Only the most recent of2 resultswithin the time period is included. [facility] Extra Tube Auto resulted. 12/27/2024 4:06 AM [facility] Comment:Hold for add-ons. Blood Venipuncture / Unknown 12/27/2024 12:02 AM EST 12/27/2024 12:02 AM EST us Anali Joyec MD LAB BLOOD ORDERABLES Final Res ult [facility] [address] [place] [address] * (ABNORMAL) CBC and Auto Differential (12/27/2024 12:02 AM EST) Only the most recent of3 resultswithin the time period is included. [facility] WBC 9.6 4.8 - 11.2 10*3/??L 12/27/2024 12:19 AM [facility] RBC 3.88(L) 4.00 - 5.90 10*6/??L 12/27/2024 12:19 AM [facility] HGB 12.2(L) 14.0 - 17.2 g/dL 12/27/2024 12:19 AM [facility] HCT 35.3(L) 40.0 - 52.0 % 12/27/2024 12:19 AM [facility] MCV 91.1 82.0 - 98.0 fL 12/27/2024 12:19 AM [facility] MCH 31.4 27.0 - 35.0 pg 12/27/2024 12:19 AM [facility] MCHC 34.5 32.0 - 37.0 g/dL 12/27/2024 12:19 AM [facility] RDW 12.8 12.0 - 15.0 % 12/27/2024 12:19 AM [facility] PLT 285 150 - 400 10*3/??L 12/27/2024 12:19 AM [facility] MPV 8.1 7.0 - 14.0 fL 12/27/2024 12:19 AM [facility] Neut % 77.7 45.0 - 85.0 % 12/27/2024 12:19 AM [facility] Lymph % 13.9(L) 15.0 - 45.0 % 12/27/2024 12:19 AM [facility] Taney % 6.9 0.0 - 12.0 % 12/27/2024 12:19 AM [facility] Eos % 1.0 0.0 - 7.0 % 12/27/2024 12:19 AM [facility] Baso % 0.5 0.0 - 3.0 % 12/27/2024 12:19 AM [facility] NRBC% 0 0 /100 WBC /100 WBC 12/27/2024 12:19 AM [facility] Neut # 7.5 2.2 - 9.5 10*3/??L 12/27/2024 12:19 AM [facility] Lym # 1.3 0.7 - 5.0 10*3/??L 12/27/2024 12:19 AM [facility] Taney # 0.7 0.0 - 1.3 10*3/??L 12/27/2024 12:19 AM [facility] Eos # 0.1 0.0 - 0.4 10*3/??L 12/27/2024 12:19 AM [facility] Baso # 0.0 0.0 - 0.3 10*3/??L 12/27/2024 12:19 AM [facility] Blood Venipuncture / Unknown 12/27/2024 12:02 AM EST 12/27/2024 12:02 AM EST us Anali Joyce MD LAB BLOOD ORDERABLES Final Res ult [facility] [address] [place] [address] * Ethanol (12/27/2024 12:02 AM EST) Only the most recent of3 resultswithin the time period is included. Ethanol Lvl <3 <10 mg/dL 12/27/2024 12:31 AM EST [facility] Blood Venipuncture / Unknown 12/27/2024 12:02 AM EST 12/27/2024 12:02 AM EST Anali Joyce MD LAB BLOOD ORDERABLES Final Res ult Performing Organization Address [facility] de Phone Number [facility] [address] [place] [phone] * (ABNORMAL) Acetaminophen level (12/27/2024 12:02 AM EST) Only the most recent of3 resultswithin the time period is included. Acetaminophen Level <2(L) 10 - 20 ug/mL 12/27/2024 12:31 AM EST [facility] Blood Venipuncture / Unknown 12/27/2024 12:02 AM EST 12/27/2024 12:02 AM EST Anali Joyce MD LAB BLOOD ORDERABLES Final Res ult Performing Organization Address [facility] de Phone Number [facility] [address] [place] [phone] * Salicylate level (12/27/2024 12:02 AM EST) Only the most recent of3 resultswithin the time period is included. Salicylate <3.0 <30.0 mg/dL 12/27/2024 12:31 AM EST [facility] Blood Venipuncture / Unknown 12/27/2024 12:02 AM EST 12/27/2024 12:02 AM EST Anali Joyce MD LAB BLOOD ORDERABLES Final Res ult Performing Organization Address City/[facility] Co de Phone Number [facility] [address] [place] [address] * Comprehensive metabolic panel (12/27/2024 12:02 AM EST) Only the most recent of3 resultswithin the time period is included. Sodium 142 136 - 145 mEq/L 12/27/2024 12:31 AM [facility] Potassium 3.6 3.5 - 5.1 mEq/L 12/27/2024 12:31 AM [facility] Chloride 106 98 - 109 mEq/L 12/27/2024 12:31 AM [facility] CO2 31 20 - 31 mEq/L 12/27/2024 12:31 AM [facility] Anion Gap 5 4 - 15 mEq/L 12/27/2024 12:31 AM [facility] Glucose 88 70 - 100 mg/dL 12/27/2024 12:31 AM [facility] Creatinine 0.99 0.60 - 1.10 mg/dL 12/27/2024 12:31 AM [facility] eGFR (Male) >60 60 - 115 mL/min 12/27/2024 12:31 AM [facility] BUN 14 9 - 23 mg/dL 12/27/2024 12:31 AM [facility] Calcium 9.3 8.3 - 10.6 mg/dL 12/27/2024 12:31 AM [facility] Total Protein 7.2 5.7 - 8.2 g/dL 12/27/2024 12:31 AM [facility] Albumin 4.6 3.2 - 4.8 g/dL 12/27/2024 12:31 AM [facility] A/G Ratio 1.8 1.0 - 2.3 12/27/2024 12:31 AM [facility] Total Bilirubin 0.3 0.2 - 1.0 mg/dL 12/27/2024 12:31 AM [facility] AST 13 13 - 40 U/L 12/27/2024 12:31 AM [facility] Alkaline Phosphatase 67 46 - 116 IU/L 12/27/2024 12:31 AM EST [facility] ALT 15 7 - 40 U/L 12/27/2024 12:31 AM EST [facility] Blood Venipuncture / Unknown 12/27/2024 12:02 AM EST 12/27/2024 12:02 AM EST Narrative [facility] - 12/27/2024 12:31 AM EST The calcium reference range has been changed as of 10/16/2024. us Anali Joyce MD LAB BLOOD ORDERABLES Final Res ult [facility] [address] [place] [address] * CT head without contrast (12/26/2024 10:48 AM EST) Anatomical Region Laterality Modality Head, Ortho Head Computed Tomogr aphy 12/26/2024 11:4 6 AM EST Impressions 12/26/2024 4:53 PM EST IMPRESSION: No evidence of acute intracranial pathology. RS: [id number] Narrative 12/26/2024 4:53 PM EST HISTORY: ??Seizure. [...] No evidence of acute intracranial pathology. RS: [id number] Kenya Singh DO IMG CT ORDERABLES Final Result * Lipase (12/25/2024 10:47 PM EST) Only the most recent of2 resultswithin the time period is included. Lipase 46 12 - 53 U/L 12/25/2024 11:23 PM EST [facility] Blood Structure of left hand / Unknown Venipuncture / Unknown 12/25/2024 10:47 PM EST 12/25/2024 10:53 PM EST [facility] LAB BLOOD ORDERABLES Final Resul t [facility] [address] [place] [address] * X-ray clavicle right (11/27/2024 1:14 PM EST) Only the most recent of2 resultswithin the time period is included. Anatomical Region Laterality Modality Shoulder, Ortho Shoulder [...] are normal. RS: [id number] Flor Kang MD [facility] ORDER JACOBO Final Result * X-ray shoulder right 2+ views (11/27/2024 12:36 AM EST) Anatomical Region Laterality Modality Shoulder, Ortho Shoulder Digital Radiography 11/27/2024 9:45 AM EST Impressions 11/27/2024 3:51 PM EST FINDINGS / IMPRESSION: Right clavicle: There is a comminuted displaced distal clavicular fracture with up to 2.3 cm distraction. There is some subtle remodeling of the osseous margins consistent with a subacute injury. Right shoulder: Clavicle fracture as above. No additional fracture. No dislocation. RS: [id number] Narrative 11/27/2024 3:51 PM EST History: pain Procedure Note Mckinley Chandler MD - 11/27/2024 History: pain FINDINGS / IMPRESSION: Right clavicle: There is a comminuted displaced distal clavicular fracture with up to 2.3cm distraction. There is some subtle remodeling of the osseous margins consistent with asubacute injury. Right shoulder: Clavicle fracture as above. No additional fracture. No dislocation. RS: [id number] Mario Steele MD [facility] ORDERABL ES Final Result * (ABNORMAL) Lipid panel (01/13/2017 3:34 PM EST) Cholesterol 237(H) 0 - 199 mg/dL 01/13/2017 6:38 PM EST [facility] Triglycerides 140 10 - 200 mg/dL 01/13/2017 6:38 PM EST [facility] HDL 61.4 35.0 - 70.0 mg/dL 01/13/2017 6:38 PM EST [facility] LDL Calculated 148(H) 0 - 100 mg/dL 01/13/2017 6:38 PM EST [facility] Cardiac Risk Factor 3.9 0.0 - 5.0 01/13/2017 6:38 PM EST [facility] Blood specimen (specimen) Venipuncture / Unknown 01/13/2017 3:34 PM EST 01/13/2017 3:34 PM EST Narrative [facility] - 01/13/2017 6:38 PM EST Cardiac Risk Factor: ?Males ? Females 2x Average Risk ?9.6 ?7.1 3x Average Risk ? 23.4 ? 11.0 Sameera Maki LAB BLOOD ORDERABLES Final Resul t [facility] [address] [place] [address] from Last 3 Months or Most Recently Relevant to Health Maintenance Insurance [facility] on file Advance Directives For more information, please contact: [phone] * Full Code (Latest Code Status on File) Date Activated Date Inactivated Comments 07/21/2018 5:01 PM 11/24/2018 11:07 PM * Full Code Date Activated Date Inactivated Comments 04/01/2018 1:17 PM 05/01/2018 10:41 PM * Full Code Date Activated Date Inactivated Comments 12/30/2017 12:48 PM 01/14/2018 11:40 AM * Full Code Date Activated Date Inactivated Comments 02/01/2017 2:59 PM 02/02/2017 7:48 PM * Full Code Date Activated Date Inactivated Comments 01/31/2017 11:28 PM 02/01/2017 2:59 PM Care Teams Loss Prevention Investigator Relationship Specialty Start [place] [id number] PCP - General 12/25/24
--- OUTSIDE RECORDS SUMMARY | 2024-12-28 16:50 | XMS_ITS | Encounter Summary ---
Author Organization [facility] Address [address] [place] [address] Care Team Providers Care Silver Cleaner Name Role Phone Kye Tobias MD Unavailable [phone] Brayden Flanagan MD Primary Care Provider [phone] Pcp, No Primary Care Provider Unavailabl e Pcp, No Primary Care Provider Unavailabl e Reason for Visit * Reason Comments Medication Refill Encounter Details Date Type Department Care Team (Late st Contact Info) Description 03/30/2018 Refill [facility] [address] [place] [address] Nellie Nava MD [address] [place], [place] [id number] Social History Tobacco Use Types Packs/Day Years [...] on filedocumented in this encounter Care Teams Silver Cleaner Relationship Specialty Start Date End Date Kye Tobias MD PCP - Family Medicine 06/26/15 12/24/24 Brayden Flanagan MD [address] [place] [phone] PCP - General Family Medicine 03/07/18 07/02/24 [place] [id number] PCP - General 07/03/24 11/26/24 [place] [id number] PCP - General 12/25/24 documented as of this encounter
--- OUTSIDE RECORDS SUMMARY | 2024-12-28 16:50 | XMS_ITS | Encounter Summary ---
Author Organization [facility] Address [address] [place] [address] Care Team Providers Care Product Engineering Manager Name Role Phone Kye Tobias MD Unavailable [phone] Kye Tobias MD Primary Care Provider Nellie Nava MD Primary Care Provider [phone] Bradyen Flanagan MD Primary Care Provider [phone] Pcp, No Primary Care Provider Unavailabl e Pcp, No Primary Care Provider Unavailabl e Reason for Visit * Reason Comments Medication Refill Encounter Details Date Type Department Care Team (Late st Contact Info) Description 01/13/2018 Refill [facility] [address] [place] [address] Kye Tobias MD [address] [place], [place] [id number] Drug-induced constipation Social History Tobacco Use Types Packs/Day Years [...] Telephone Encounter - Naty Manzano RN - 01/16/2018 9:54 AM EST rx filled, to building inspection engineer to sched upcoming visit w/ new PCP documented in this encounter Plan of Treatment Not on file documented as of this encounter Visit Diagnoses Diagnosis Drug-induced constipation Other constipation documented in this encounter Care Teams Product Engineering Manager Relationship Specialty Start Date End Date Kye Tobias MD PCP - Family Medicine 06/26/15 12/24/24 Kye Tobias MD PCP - General Internal Medicine 08/24/16 01/15/18 Nellie Nava MD [address] [place] [address] PCP - General Internal Medicine 01/16/18 03/06/18 rBayden Flanagan MD [address] [place] [id number] PCP - General Family Medicine 03/07/18 07/02/24 [place] [id number] PCP - General 07/03/24 11/26/24 [place] [id number] PCP - General 12/25/24 documented as of this encounter
[2024-12-28 17:15] VITALS: BP 136/84; PULSE 106; RESP 16; TEMP 37.1; O2SAT 96
[2024-12-28 18:15] VITALS: BMI 25.5
--- NOTE | 2024-12-28 19:03 | PC.NURSE ---
Oscar was admitted to [facility]? at 1710 from [facility] ED on CV for treatment of schizoaffective d/o and polysubstance use disorder. Patient is undomiciled and had presented to [facility] ED multiple times with ? clavicle pain. When discharging from ED he reported SI with a plan to ?long drop? hang himself. Pt reports longstanding history of ah, vh and mood fluctuations. He had been off his medications and using cocaine x 3 days prior to presenting to ED.? Patient is agitated on arrival to [facility] with ? uncontrolled pain in right clavicle and general malaise. He was cooperative with skin check and answered some assessment questions but quickly became agitated and declined to sign legals or to continue admission process.? Pt denies current ah and vh. He reports his mood is depressed.? Affect is agitated. Thought process is disorganized.? Upon admission he confirmed that he was having SI in the [facility] ED Appetite is good with no recent wt loss or gain Sleep? Is good with medications. Focus is fair. Substance deep includes cocaine use - last used 3 days ago. Tox screen is positive for cannabis but pt denies use.? Medical Issues:?? reports constipation, unknown last BM, requested colace. Pt has cellulitis 1st digit left hand, on keflex, started yesterday. highly displaced fracture of right clavicle in need of surgical repair Goal of admission is to get back on meds Safety Checks are 1:1
[2024-12-28 20:00] VITALS: BP 134/79; PULSE 84; RESP 18; TEMP 37.2; O2SAT 96
[2024-12-28] MEDS: traZODone HCL 100 MG TABLET PO (21:16)
[2024-12-28] MEDS: Mirtazapine 15 MG TABLET 45 MG PO (21:17)
[2024-12-28] MEDS: OLANZapine 10 MG TABLET 20 MG PO (21:17)
[2024-12-28] MEDS: Doxepin HCl 25 MG CAPSULE 50 MG PO (21:18)
[2024-12-28] MEDS: lamoTRIgine 25 MG TABLET 75 MG PO (21:18)
[2024-12-28] MEDS: HaloperidoL 5 MG TABLET PO (21:18)
[2024-12-28] MEDS: Docusate Sodium 100 MG CAPSULE PO (21:19)
[2024-12-28] MEDS: cephALEXin 500 MG CAPSULE PO (21:19)
[2024-12-28] MEDS: Ondansetron ODT 4 MG TAB.RAPDIS TRANSLINGU (21:49)
--- NOTE | 2024-12-29 02:42 | PC.NURSE ---
Pt refused HS Suboxone @ bed time
[2024-12-29] MEDS: Docusate Sodium 100 MG CAPSULE PO ×2 (06:43→18:15)
[2024-12-29 08:28] VITALS: BP 130/77; PULSE 99; RESP 18; TEMP 36.7; O2SAT 95
[2024-12-29] MEDS: Ibuprofen 600 MG TABLET PO (08:31)
[2024-12-29] MEDS: Ondansetron ODT 4 MG TAB.RAPDIS TRANSLINGU ×2 (08:31→12:46)
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
[2024-12-29] MEDS: Buprenorphine/Naloxone 8/2 mg FILM 1 FILM SUBLINGUAL ×2 (09:11→14:53)
[2024-12-29] MEDS: lamoTRIgine 25 MG TABLET 75 MG PO ×2 (09:11→20:38)
[2024-12-29] MEDS: HaloperidoL 5 MG TABLET PO ×2 (09:11→20:38)
[2024-12-29] MEDS: cephALEXin 500 MG CAPSULE PO ×4 (09:11→20:40)
[2024-12-29] MEDS: Calcium Carbonate 750 MG TAB.CHEW PO ×2 (10:49→20:49)
[2024-12-29] MEDS: chlorproMAZINE HCl 100 MG TABLET PO (11:38)
[2024-12-29] MEDS: Nicotine Polacrilex 2 MG GUM 4 MG BUCCAL ×4 (11:45→18:15)
[2024-12-29] MEDS: hydrOXYzine HCL 50 MG TABLET PO ×2 (13:49→18:17)
[2024-12-29 20:00] VITALS: BP 133/76; PULSE 96; RESP 16; TEMP 36.9; O2SAT 97
[2024-12-29] MEDS: Doxepin HCl 25 MG CAPSULE 50 MG PO (20:37)
[2024-12-29] MEDS: Mirtazapine 15 MG TABLET 45 MG PO (20:39)
[2024-12-29] MEDS: OLANZapine 10 MG TABLET 20 MG PO (20:39)
[2024-12-29] MEDS: traZODone HCL 100 MG TABLET PO (20:39)
--- NOTE | 2024-12-29 23:21 | PC.NURSE ---
Pt refused his scheduled Suboxone @ bedtime.
[2024-12-30] MEDS: chlorproMAZINE HCl 100 MG TABLET PO ×2 (03:08→15:10)
[2024-12-30] MEDS: Nicotine Polacrilex 2 MG GUM 4 MG BUCCAL ×4 (05:40→17:44)
[2024-12-30] MEDS: Docusate Sodium 100 MG CAPSULE PO ×2 (05:40→21:09)
[2024-12-30] MEDS: Ibuprofen 600 MG TABLET PO (07:00)
[2024-12-30 07:51] VITALS: BP 119/74; PULSE 92; RESP 16; TEMP 36.7; O2SAT 93
[2024-12-30] MEDS: Ondansetron ODT 4 MG TAB.RAPDIS TRANSLINGU ×3 (08:56→18:26)
[2024-12-30] MEDS: cephALEXin 500 MG CAPSULE PO ×4 (08:57→21:07)
[2024-12-30] MEDS: HaloperidoL 5 MG TABLET PO ×2 (08:57→21:08)
[2024-12-30] MEDS: Buprenorphine/Naloxone 8/2 mg FILM 1 FILM SUBLINGUAL ×3 (08:57→20:23)
[2024-12-30] MEDS: lamoTRIgine 25 MG TABLET 75 MG PO ×2 (08:57→21:06)
--- NOTE | 2024-12-30 09:43 | HO.PSYCHPN ---
Subjective Subjective Date of Service: 12/30/24 Reason For Visit: Bipolar d/o Subjective Notes: Conditional Voluntary Healthcare Proxy: No Guardianship: No Medical Problems Affecting Mental Status: No Interim History: 44 yo reports feeling sad and more depressed today, wants antidepressant changed and likes idea of trying gabapentin- also issues around his suboxone- tells differing stories to nurse, dr he told doesn't like taste- nurse reports skipping/refusing one of his doses of subs- wants to be put on subutex- Medication Compliance: Yes Side effects from medications: No Attending Groups: Yes Review of Systems Acute medical concerns: No Medical Review of Systems: unchanged Mental Status Exam Mental Status Exam Patient Appearance: Unkempt Patient Orientation: Person, Place, Time and Situation Level of Consciousness: Awake Patient Behavior: Appropriate and Good Eye Contact Mood Description: Sad Affect Description: Blunted Patient Cognition Impaired: No Ability to Follow Directions: Fair Speech Pattern: Clear Hallucinations: None Thought Process: Intact Thought Content: positive for Goal Oriented and positive for Suicidal Ideation (no plan) Depressive Symptoms: Unhappiness Judgement: Fair Diagnostics Vital Signs (24Hr): Vital Signs - 24 hr 12/29/24 20:00 12/30/24 07:51 Temperature 98.5 F 98.0 F Pulse Rate 96 92 Respiratory Rate 16 16 Blood Pressure 133/76 119/74 Pulse Oximetry 97 93 Oxygen Delivery Method Room Air Room Air BMI result Body Mass Index 25.5 Medications Medications Current Medications Buprenorphine/Naloxone (Buprenorphine/Naloxone 8/2 Mg Film) 1 film SUBLINGUAL TID [facility] Last Admin: 12/30/24 08:57 Dose: 1 film Calcium Carbonate (Calcium Carbonate 750 Mg Tab.Chew) 750 mg PO Q6H PRN PRN Reason: Heartburn Last Admin: 12/29/24 20:49 Dose: 750 mg Cephalexin HCl (Cephalexin 500 Mg Capsule) 500 mg PO QID [facility] Stop: 01/03/25 20:59 Last Admin: 12/30/24 08:57 Dose: 500 mg Chlorpromazine HCl (Chlorpromazine Hcl 100 Mg Tablet) 100 mg PO TID PRN PRN Reason: AH/Agitation Last Admin: 12/30/24 03:08 Dose: 100 mg Docusate Sodium (Docusate Sodium 100 Mg Capsule) 100 mg PO Q12H [facility] Last Admin: 12/30/24 05:40 Dose: 100 mg Doxepin HCl (Doxepin Hcl 25 Mg Capsule) 50 mg PO BEDTIME [facility] Last Admin: 12/29/24 20:37 Dose: 50 mg Haloperidol (Haloperidol 5 Mg Tablet) 5 mg PO BID [facility] Last Admin: 12/30/24 08:57 Dose: 5 mg Hydroxyzine HCl (Hydroxyzine Hcl 50 Mg Tablet) 50 mg PO TID PRN PRN Reason: mild anxiety Last Admin: 12/29/24 18:17 Dose: 50 mg Ibuprofen (Ibuprofen 600 Mg Tablet) 600 mg PO Q8H PRN PRN Reason: Pain, Mild (Pain Scale 1-3) Last Admin: 12/30/24 07:00 Dose: 600 mg Lamotrigine (Lamotrigine 25 Mg Tablet) 75 mg PO BID [facility] Last Admin: 12/30/24 08:57 Dose: 75 mg Magnesium Hydroxide (Milk Of Magnesia 30 Ml Oral.Susp) 30 ml PO DAILY PRN PRN Reason: Constipation Mirtazapine (Mirtazapine 15 Mg Tablet) 45 mg PO BEDTIME [facility] Last Admin: 12/29/24 20:39 Dose: 45 mg Nicotine (Nicotine 21 Mg Patch.Td24) 21 mg TRANSDERMA DAILY PRN PRN Reason: smoking cessation Nicotine Polacrilex (Nicotine Polacrilex 2 Mg Gum) 4 mg BUCCAL Q2H PRN PRN Reason: Nicotine Cravings Last Admin: 12/30/24 05:40 Dose: 4 mg Olanzapine (Olanzapine 10 Mg Tablet) 20 mg PO BEDTIME [facility] Last Admin: 12/29/24 20:39 Dose: 20 mg Ondansetron HCl (Ondansetron Odt 4 Mg Tab.Rapdis) 4 mg TRANSLINGU TIDWM PRN PRN Reason: nausea Last Admin: 12/30/24 08:56 Dose: 4 mg Trazodone HCl (Trazodone Hcl 50 Mg Tablet) 50 mg PO BEDTIME MRX1 PRN PRN Reason: Insomnia Trazodone HCl (Trazodone Hcl 100 Mg Tablet) 100 mg PO BEDTIME [facility] Last Admin: 12/29/24 20:39 Dose: 100 mg Allergies Allergies Allergy/AdvReac Type Severity Reaction Status Date / Time No Known Allergies Allergy Verified 12/28/24 18:16 Assessment & Plan Assessment & Plan (1) Opiate dependence, continuous: Status: Acute Code(s): F11.20 - Opioid dependence, uncomplicated (2) Cocaine abuse: Status: Acute Code(s): F14.10 - Cocaine abuse, uncomplicated (3) Geena: Status: Acute Code(s): F30.9 - Manic episode, unspecified (4) Suicidal ideation: Status: Acute Code(s): R45.851 - Suicidal ideations Plan continue current medications, further data gathering- seems to be calming down back on medications- consider GAbapentin? 12/30 did start gabapentin, did not change anti depressant as he is on doxepin, trazodone and remeron- seems xs -also a number of other medications- lamotrigine maybe for reported seizures though- also added addiction medicine consult for week Patient educated on: medication risk/benefits and substance abuse Informed Consent: understands Reason for continued inpatient stay Substantial Risk for: harm to self and rapid decompensation Time Spent With Patient Time: Total time managing care of this patient today ____ minutes.
[2024-12-30] MEDS: Acetaminophen 325 MG TABLET 650 MG PO ×2 (10:00→17:44)
[2024-12-30] MEDS: hydrOXYzine HCL 50 MG TABLET PO (11:24)
[2024-12-30] MEDS: Calcium Carbonate 750 MG TAB.CHEW PO (15:10)
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
[2024-12-30 19:45] VITALS: BP 121/77; PULSE 90; RESP 18; TEMP 36.4; O2SAT 98
[2024-12-30] MEDS: Simethicone 80 MG TAB.CHEW PO (20:23)
[2024-12-30] MEDS: Mirtazapine 15 MG TABLET 45 MG PO (21:06)
[2024-12-30] MEDS: Gabapentin 100 MG CAPSULE PO (21:07)
[2024-12-30] MEDS: Doxepin HCl 25 MG CAPSULE 50 MG PO (21:08)
[2024-12-30] MEDS: traZODone HCL 100 MG TABLET PO (21:09)
[2024-12-30] MEDS: OLANZapine 10 MG TABLET 20 MG PO (21:09)
[2024-12-31] MEDS: Calcium Carbonate 750 MG TAB.CHEW PO ×2 (04:07→15:37)
[2024-12-31] MEDS: Ondansetron ODT 4 MG TAB.RAPDIS TRANSLINGU (07:16)
[2024-12-31] MEDS: Nicotine Polacrilex 2 MG GUM 4 MG BUCCAL ×5 (07:17→21:09)
[2024-12-31 07:47] VITALS: BP 115/75; PULSE 79; RESP 16; TEMP 36.3; O2SAT 98
[2024-12-31] MEDS: cephALEXin 500 MG CAPSULE PO ×4 (08:32→22:03)
[2024-12-31] MEDS: HaloperidoL 5 MG TABLET PO ×2 (08:32→22:02)
[2024-12-31] MEDS: Gabapentin 100 MG CAPSULE PO ×3 (08:32→22:03)
[2024-12-31] MEDS: lamoTRIgine 25 MG TABLET 75 MG PO ×2 (08:32→22:03)
[2024-12-31] MEDS: Docusate Sodium 100 MG CAPSULE PO ×2 (08:33→22:03)
[2024-12-31] MEDS: Buprenorphine/Naloxone 8/2 mg FILM 1 FILM SUBLINGUAL ×3 (08:38→21:50)
[2024-12-31] MEDS: Acetaminophen 325 MG TABLET 650 MG PO (13:23)
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
[2024-12-31] MEDS: Ibuprofen 600 MG TABLET PO (18:52)
[2024-12-31 21:45] VITALS: PULSE 98; RESP 18; TEMP 36.4; O2SAT 97
[2024-12-31] MEDS: Milk of Magnesia 30 ML ORAL.SUSP PO (21:55)
[2024-12-31] MEDS: Mirtazapine 15 MG TABLET 45 MG PO (22:02)
[2024-12-31] MEDS: Doxepin HCl 25 MG CAPSULE 50 MG PO (22:02)
[2024-12-31] MEDS: OLANZapine 10 MG TABLET 20 MG PO (22:02)
[2024-12-31] MEDS: traZODone HCL 100 MG TABLET PO (22:03)
[2025-01-01] MEDS: chlorproMAZINE HCl 100 MG TABLET PO ×3 (01:59→17:21)
[2025-01-01 08:20] VITALS: BP 118/81; PULSE 99; RESP 16; TEMP 36.3; O2SAT 99
[2025-01-01] MEDS: lamoTRIgine 25 MG TABLET 75 MG PO ×2 (09:44→23:03)
[2025-01-01] MEDS: Gabapentin 100 MG CAPSULE PO ×3 (09:44→23:04)
[2025-01-01] MEDS: HaloperidoL 5 MG TABLET PO ×2 (09:44→23:04)
[2025-01-01] MEDS: cephALEXin 500 MG CAPSULE PO ×4 (09:45→23:03)
[2025-01-01] MEDS: Buprenorphine/Naloxone 8/2 mg FILM 1 FILM SUBLINGUAL (09:45)
[2025-01-01] MEDS: Docusate Sodium 100 MG CAPSULE PO ×2 (09:45→23:04)
[2025-01-01] MEDS: Calcium Carbonate 750 MG TAB.CHEW PO (09:48)
[2025-01-01] MEDS: Nicotine Polacrilex 2 MG GUM 4 MG BUCCAL ×3 (10:41→16:08)
[2025-01-01] MEDS: Milk of Magnesia 30 ML ORAL.SUSP PO (11:51)
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
[2025-01-01] MEDS: Buprenorphine HCL 8 MG TAB.SUBL SUBLINGUAL ×2 (15:32→23:04)
[2025-01-01] MEDS: hydrOXYzine HCL 50 MG TABLET PO (16:15)
[2025-01-01 21:10] VITALS: RESP 18
[2025-01-01] MEDS: OLANZapine 10 MG TABLET 20 MG PO (23:04)
[2025-01-01] MEDS: traZODone HCL 100 MG TABLET PO (23:04)
[2025-01-01] MEDS: Doxepin HCl 25 MG CAPSULE 75 MG PO (23:04)
[2025-01-01] MEDS: Mirtazapine 15 MG TABLET 45 MG PO (23:04)
[2025-01-02] MEDS: Nicotine Polacrilex 2 MG GUM 4 MG BUCCAL ×4 (08:16→21:31)
[2025-01-02] MEDS: Buprenorphine HCL 8 MG TAB.SUBL SUBLINGUAL ×3 (09:04→21:32)
[2025-01-02] MEDS: lamoTRIgine 25 MG TABLET 75 MG PO ×2 (09:04→21:31)
[2025-01-02] MEDS: Docusate Sodium 100 MG CAPSULE PO ×2 (09:05→21:31)
[2025-01-02] MEDS: cephALEXin 500 MG CAPSULE PO ×4 (09:05→21:32)
[2025-01-02] MEDS: Gabapentin 100 MG CAPSULE PO ×3 (09:06→21:32)
[2025-01-02] MEDS: HaloperidoL 5 MG TABLET PO ×2 (09:06→21:32)
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
[2025-01-02] MEDS: chlorproMAZINE HCl 100 MG TABLET PO ×2 (12:13→21:32)
[2025-01-02] MEDS: hydrOXYzine HCL 50 MG TABLET PO (14:39)
[2025-01-02 20:00] VITALS: RESP 16
[2025-01-02] MEDS: Doxepin HCl 25 MG CAPSULE 75 MG PO (21:31)
[2025-01-02] MEDS: Mirtazapine 15 MG TABLET 45 MG PO (21:31)
[2025-01-02] MEDS: traZODone HCL 100 MG TABLET PO (21:32)
[2025-01-02] MEDS: OLANZapine 10 MG TABLET 20 MG PO (21:32)
[2025-01-03] MEDS: chlorproMAZINE HCl 100 MG TABLET PO (03:46)
[2025-01-03 07:00] VITALS: BMI 27.0
[2025-01-03] MEDS: lamoTRIgine 25 MG TABLET 75 MG PO (09:04)
[2025-01-03] MEDS: cephALEXin 500 MG CAPSULE PO (09:04)
[2025-01-03] MEDS: Docusate Sodium 100 MG CAPSULE PO (09:04)
[2025-01-03] MEDS: Gabapentin 100 MG CAPSULE PO (09:04)
[2025-01-03] MEDS: Buprenorphine HCL 8 MG TAB.SUBL SUBLINGUAL (09:04)
[2025-01-03] MEDS: HaloperidoL 5 MG TABLET PO (09:04)
[2025-01-03] MEDS: Nicotine Polacrilex 2 MG GUM 4 MG BUCCAL (09:15)
[2025-01-03] MEDS: Milk of Magnesia 30 ML ORAL.SUSP PO (09:15)
[2025-01-03] MEDS: Acetaminophen 325 MG TABLET 650 MG PO (09:15)
[2025-01-03] MEDS: Naloxone HCl Nasal TAKE HOME 4 MG SPRAY 8 MG NOSTRILALT (09:19)
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
== END 2025-01-03 10:20 | disposition home or self-care (01) | DRG 885 ==
PROVIDERS: Admitting Provider Psychiatry & Neurology Psychiatry; Responsible Provider Registered Nurse; Visit Provider Psychiatry & Neurology Psychiatry
DX: F31.9 Bipolar disorder, unspecified (principal); F11.20 Opioid dependence, uncomplicated; R45.851 Suicidal ideations; Z59.02 Unsheltered homelessness; F14.10 Cocaine abuse, uncomplicated; F17.210 Nicotine dependence, cigarettes, uncomplicated; Z71.6 Tobacco abuse counseling; Z79.899 Other long term (current) drug therapy
CPT/HCPCS: J0571

== ENCOUNTER → 2024-12-28 16:46 | Outpatient (BNV) | payer OTHER, SELFPAY | PROVIDERS: Admitting Provider Psychiatry & Neurology Psychiatry; Visit Provider Internal Medicine | DX: R45.851 Suicidal ideations (principal) | CPT/HCPCS: 99222 ==

== ENCOUNTER → 2024-12-28 16:46 | Outpatient (BNV) | payer OTHER, SELFPAY | PROVIDERS: Admitting Provider Psychiatry & Neurology Psychiatry; Responsible Provider Registered Nurse; Visit Provider Registered Nurse | DX: F30.9 Manic episode, unspecified (principal); F11.20 Opioid dependence, uncomplicated; F14.10 Cocaine abuse, uncomplicated; R45.851 Suicidal ideations | CPT/HCPCS: 99231; 99232; 99238 ==